=== PATIENT | male | born 1975 | race African-American/Black ===

== ENCOUNTER 2017-05-30 13:55 | Emergency (ER) | payer SELFPAY ==
[~2017-05-30] VITALS: Ht 170.2 cm; Wt 97.7 kg
[~2017-05-30 13:55] MED LIST: AMOXICILLIN500 MG OR; CLARITIN10 M1 OR; CLONIDINE0.1 MG PO; EQ IBUPROFEN200 MG OR; ERY-TAB333 MG OR; IBUPROFEN200 M1 OR; INDOCIN25 MG PO; INDOCIN50 MG/CAP PO; METFORMIN500 MG PO; NORCO1 TA1 PO; NORVASC PO; NOVOLOG MIX100 U/ML SC; PERCOCET 5/325M1 TAB PO; PROBENECID/COLC1 TAB PO; ULTRAM50 M1 OR
[2017-05-30] MEDS ORDERED: LISINOPRIL/HYDR1 TA1 PO (14:28)
[2017-05-30 15:39] LABS: HEMATOCRIT 41.6 % (39.0-50.0); HEMOGLOBIN 13.4 g/dl (14.0-18.0); IMMATURE GRANULOCYTES 0.2 % (0.0-1.0); MEAN CELL VOLUME 72.3 fL CALC (80.0-100.0); MEAN CORPUSCULAR HGB 23.3 pG CALC (26.0-32.0); MEAN CORPUSCULAR HGB CONC 32.2 g/L CALC (32.0-36.0); NEUT# 5.83 thou/uL (1.82-7.42); RED BLOOD COUNT 5.75 mill/uL (4.70-6.10); RED CELL DISTRI WIDTH 14.6 % (11.5-15.5)
[2017-05-30 15:56] LABS: ALBUMIN 4.8 g/dL (3.2-5.0); ALKALINE PHOSPHATASE 93 u/l (38-126); ANION GAP 19 (6-22 (CALC)); BILIRUBIN, TOTAL 0.9 mg/dL (0.0-1.4); BUN 18 mg/dL (9-20); BUN/CREATININE RATIO 14 (12-20 (CALC)); CALCIUM 10.4 mg/dL (8.4-10.2); CARBON DIOXIDE 26 mmol/l (22-30); CHLORIDE 98 mmol/l (95-108); CREATININE 1.3 mg/dL (0.7-1.3); GFR > 60 ML/MIN (>=60 (CALC)); GFR FOR AFR.AMER. > 60 ML/MIN (>=60 (CALC)); GLUCOSE 250 mg/dL (75-110); POTASSIUM 4.2 mmol/l (3.5-5.1); SGOT/AST 28 u/l (17-59); SGPT/ALT 36 u/l (21-72); SODIUM 138 mmol/l (137-146); TOTAL PROTEIN 8.7 g/dL (6.3-8.2)
[2017-05-30] MEDS ORDERED: FIORICET PO (16:47)
[2017-05-30 17:47] VITALS: BP 148/81
== END 2017-05-30 17:47 | disposition home or self-care (01) | DRG 103 ==
LOC: ED 13:55
PROVIDERS: Emergency Medicine
DX: G43.909 Migraine, unspecified, not intractable, without status migrainosus (principal); I10 Essential (primary) hypertension; E11.9 Type 2 diabetes mellitus without complications; M10.9 Gout, unspecified

== ENCOUNTER 2017-08-29 22:28 | Emergency (ER) | payer SELFPAY ==
[~2017-08-29] VITALS: Ht 170.2 cm; Wt 102.2 kg
[~2017-08-29 22:28] MED LIST changes: +FIORICET PO; +LISINOPRIL/HYDR1 TA1 PO
[2017-08-29] MEDS ORDERED: COLCHICINE0.6 M2 PO (23:07)
[2017-08-29] MEDS ORDERED: INDOCIN25 MG PO (23:07)
[2017-08-29 23:37] VITALS: BP 163/86
== END 2017-08-29 23:35 | disposition home or self-care (01) | DRG 554 ==
LOC: ED 22:28
DX: M10.9 Gout, unspecified (principal); M79.671 Pain in right foot

== ENCOUNTER 2017-09-13 21:21 | Emergency (ER) | payer SELFPAY ==
[~2017-09-13] VITALS: Ht 170.2 cm; Wt 99.6 kg
[~2017-09-13 21:21] MED LIST changes: +COLCHICINE0.6 M2 PO
[2017-09-13 22:07] LABS: HEMOGLOBIN 11.9 g/dl (14.0-18.0); IMMATURE GRANULOCYTES 0.8 % (0.0-1.0); MEAN CELL VOLUME 73.9 fL CALC (80.0-100.0); MEAN CORPUSCULAR HGB 23.8 pG CALC (26.0-32.0); MEAN CORPUSCULAR HGB CONC 32.2 g/L CALC (32.0-36.0); NEUT# 5.93 thou/uL (1.82-7.42); RED BLOOD COUNT 5.01 mill/uL (4.70-6.10); RED CELL DISTRI WIDTH 14.6 % (11.5-15.5)
[2017-09-13 22:14] LABS: ALBUMIN 4.6 g/dL (3.2-5.0); ALKALINE PHOSPHATASE 99 u/l (38-126); ANION GAP 20 (6-22 (CALC)); BILIRUBIN, TOTAL 0.5 mg/dL (0.0-1.4); BUN 13 mg/dL (9-20); BUN/CREATININE RATIO 11 (12-20 (CALC)); CALCIUM 9.5 mg/dL (8.4-10.2); CARBON DIOXIDE 23 mmol/l (22-30); CHLORIDE 100 mmol/l (95-108); CREATININE 1.3 mg/dL (0.7-1.3); GFR > 60 ML/MIN (>=60 (CALC)); GFR FOR AFR.AMER. > 60 ML/MIN (>=60 (CALC)); GLUCOSE 270 mg/dL (75-110); POTASSIUM 4.2 mmol/l (3.5-5.1); SGOT/AST 38 u/l (17-59); SGPT/ALT 35 u/l (21-72); SODIUM 139 mmol/l (137-146); TOTAL PROTEIN 8.1 g/dL (6.3-8.2)
[2017-09-13 22:18] LABS: INFLUENZA A NONE DETECTED (NONE DETECT); INFLUENZA B NONE DETECTED (NONE DETECT)
[2017-09-13] MEDS ORDERED: ROBITUSSIN AC10 ML PO (22:27)
[2017-09-13] MEDS ORDERED: AMOXICILLIN500 MG PO (22:27)
[2017-09-13 22:51] VITALS: BP 141/80
== END 2017-09-13 22:50 | disposition home or self-care (01) | DRG 153 ==
LOC: ED 21:21
PROVIDERS: Emergency Medicine
DX: J02.0 Streptococcal pharyngitis (principal); E11.9 Type 2 diabetes mellitus without complications; I10 Essential (primary) hypertension; M10.9 Gout, unspecified

== ENCOUNTER 2017-10-09 03:14 | Emergency (ER) | payer SELFPAY ==
[~2017-10-09] VITALS: Ht 170.2 cm; Wt 104.2 kg
[~2017-10-09 03:14] MED LIST changes: +AMOXICILLIN500 MG PO; +ROBITUSSIN AC10 ML PO
[2017-10-09 04:16] LABS: HEMATOCRIT 35.8 % (39.0-50.0); HEMOGLOBIN 11.5 g/dl (14.0-18.0); IMMATURE GRANULOCYTES 0.3 % (0.0-1.0); MEAN CELL VOLUME 74.9 fL CALC (80.0-100.0); MEAN CORPUSCULAR HGB 24.1 pG CALC (26.0-32.0); MEAN CORPUSCULAR HGB CONC 32.1 g/L CALC (32.0-36.0); NEUT# 6.2 thou/uL (1.82-7.42); RED BLOOD COUNT 4.78 mill/uL (4.70-6.10); RED CELL DISTRI WIDTH 13.9 % (11.5-15.5); URINE BILIRUBIN - DIPSTICK NEGATIVE (NEGATIVE); URINE BLOOD DIPSTICK TRACE-INTACT (NEGATIVE); URINE COLOR YELLOW; URINE GLUCOSE - DIPSTICK NEGATIVE (NEGATIVE); URINE KETONE NEGATIVE (NEGATIVE); URINE LEUK ESTERASE NEGATIVE (NEGATIVE); URINE NITRITE - DIPSTICK NEGATIVE (Negative); URINE PH 5.5 (4.5-8.0); URINE PROTEIN - DIPSTICK 100 mg/dL (NEG-TRACE); URINE SPECIFIC GRAVITY 1.025; URINE UROBILINOGEN - DIPSTICK 0.2 E.U./dL (0.2)
[2017-10-09 04:17] LABS: URINE CLARITY CLEAR
[2017-10-09 04:24] LABS: INFLUENZA A POSITIVE (NONE DETECT); INFLUENZA B NONE DETECTED (NONE DETECT)
[2017-10-09 04:26] LABS: URINE BACTERIA FEW hpf; URINE SQUAMOUS EPITHELIAL CELL FEW EPI/hpf (0-FEW)
[2017-10-09] MEDS ORDERED: AMOXICILLIN500 MG PO (04:28)
[2017-10-09] MEDS ORDERED: ROBITUSSIN AC10 ML PO (04:28)
[2017-10-09] MEDS ORDERED: TAM75CAP PO (04:28)
[2017-10-09 04:30] LABS: ALBUMIN 4.5 g/dL (3.2-5.0); ALKALINE PHOSPHATASE 88 u/l (38-126); ANION GAP 17 (6-22 (CALC)); BILIRUBIN, TOTAL 0.5 mg/dL (0.0-1.4); BUN 9 mg/dL (9-20); BUN/CREATININE RATIO 8 (12-20 (CALC)); CALCIUM 10.1 mg/dL (8.4-10.2); CARBON DIOXIDE 24 mmol/l (22-30); CHLORIDE 106 mmol/l (95-108); CREATININE 1.2 mg/dL (0.7-1.3); GFR > 60 ML/MIN (>=60 (CALC)); GFR FOR AFR.AMER. > 60 ML/MIN (>=60 (CALC)); GLUCOSE 179 mg/dL (75-110); POTASSIUM 4.1 mmol/l (3.5-5.1); SGOT/AST 62 u/l (17-59); SGPT/ALT 45 u/l (21-72); SODIUM 143 mmol/l (137-146); TOTAL PROTEIN 7.8 g/dL (6.3-8.2)
[2017-10-09] MEDS ORDERED: LISINOPRIL/HYDR1 TA1 PO (04:57)
[2017-10-09 05:06] VITALS: BP 169/83
== END 2017-10-09 05:06 | disposition home or self-care (01) | DRG 153 ==
LOC: ED 03:14
PROVIDERS: Emergency Medicine
DX: J11.1 Influenza due to unidentified influenza virus with other respiratory manifestations (principal); J02.0 Streptococcal pharyngitis; N39.0 Urinary tract infection, site not specified; R50.9 Fever, unspecified

== ENCOUNTER 2017-10-09 14:16 | Inpatient (IN) | payer SELFPAY ==
[~2017-10-09] VITALS: Ht 170.2 cm; Wt 101.2 kg
[~2017-10-09 14:16] MED LIST changes: +TAM75CAP PO
--- NOTE | 2017-10-09 14:16 | NUR ---
TO ROOM 11 VIA STRETCHER BY EMS. WALKED TO BED. STATES WAS HERE LAST NIGHT, DX WITH FLU AND STREP BUT HS NOT STARTED MEDICATION
[2017-10-09 15:20] LABS: ALBUMIN 4.4 g/dL (3.2-5.0); ALKALINE PHOSPHATASE 82 u/l (38-126); ANION GAP 16 (6-22 (CALC)); BILIRUBIN, TOTAL 0.4 mg/dL (0.0-1.4); BUN 11 mg/dL (9-20); BUN/CREATININE RATIO 8 (12-20 (CALC)); CALCIUM 9.8 mg/dL (8.4-10.2); CARBON DIOXIDE 24 mmol/l (22-30); CHLORIDE 105 mmol/l (95-108); CREATININE 1.4 mg/dL (0.7-1.3); GFR 56 ML/MIN (>=60 (CALC)); GFR FOR AFR.AMER. > 60 ML/MIN (>=60 (CALC)); GLUCOSE 165 mg/dL (75-110); POTASSIUM 3.9 mmol/l (3.5-5.1); SGOT/AST 87 u/l (17-59); SGPT/ALT 47 u/l (21-72); SODIUM 142 mmol/l (137-146); TOTAL PROTEIN 8.1 g/dL (6.3-8.2)
[2017-10-09 15:24] LABS: HEMATOCRIT 34.8 % (39.0-50.0); HEMOGLOBIN 11.3 g/dl (14.0-18.0); IMMATURE GRANULOCYTES 0.5 % (0.0-1.0); MEAN CORPUSCULAR HGB CONC 32.5 g/L CALC (32.0-36.0); NEUT# 6.92 thou/uL (1.82-7.42); RED BLOOD COUNT 4.7 mill/uL (4.70-6.10)
--- NOTE | 2017-10-09 15:53 | NUR ---
BEDRESTING. C/O BODY ACHES. NO COUGH NOTED
--- NOTE | 2017-10-09 16:30 | NUR ---
VOIDED 300ML STRAW COLORED URINE
--- NOTE | 2017-10-09 16:31 | NUR ---
SBAR PRINTED TO FLOOR
--- NOTE | 2017-10-09 16:51 | NUR ---
TYLENOL GIVEN FOR FEVER. AWAITING BED FOR ADMISSION
--- NOTE | 2017-10-09 16:58 | NUR ---
CALLED TO GIVE REPORT. NURSE TO RETURN CALL WHEN READY TO TAKE REPORT
--- NOTE | 2017-10-09 16:59 | NUR ---
SBAR REPRINTED TO FLOOR
[2017-10-09 17:05] LABS: BARBITURATES NEGATIVE (NEGATIVE); COCAINE NEGATIVE (NEGATIVE); METHADONE NEGATIVE (NEGATIVE); OXCYCODONE NEGATIVE (NEGATIVE); TETRAHYDROCANNABIONOL NEGATIVE (NEGATIVE); TRICYLIC ANTIDEPRESSANTS NEGATIVE (NEGATIVE)
--- NOTE | 2017-10-09 17:05 | NUR ---
ISABELLE CALLED BACK-REPORT GIVEN
--- NOTE | 2017-10-09 17:40 | NUR ---
TO MS VIA STRETCHER. PT REPORTS HE FEELS BETTER. VOIDED 25ML OF STRAW URINE AT THIS TIME
[2017-10-09 17:46] VITALS: BP 126/65
--- NOTE | 2017-10-09 17:47 | NUR ---
REPORT RECEIVED FROM VON IN ED, PT ARRIVED ON UNIT VIA W/C @ 7141, ALERT AMD ORIENTED X 3, SETTLED IN AND ORIENTED TO ROOM, TELE MOITOR IN PLACE. TEMP AT THIS TIME = 102.3. C/O CHEST PAIN BUT ONLY OCCURS WITH COUGHING. CALL WHITE INREACH, WILL CONTINUE TO MONITOR.
[2017-10-09 18:45] VITALS: BP 139/79
[2017-10-09 18:49] LABS: URINE BILIRUBIN - DIPSTICK NEGATIVE (NEGATIVE); URINE BLOOD DIPSTICK TRACE-INTACT (NEGATIVE); URINE COLOR YELLOW; URINE GLUCOSE - DIPSTICK NEGATIVE (NEGATIVE); URINE KETONE NEGATIVE (NEGATIVE); URINE LEUK ESTERASE NEGATIVE (Negative); URINE NITRITE - DIPSTICK NEGATIVE (Negative); URINE PROTEIN - DIPSTICK 100 mg/dL (NEG-TRACE); URINE SPECIFIC GRAVITY 1.025; URINE UROBILINOGEN - DIPSTICK 0.2 E.U./dL (0.2)
[2017-10-09 18:53] LABS: URINE CLARITY CLEAR
[2017-10-09 19:00] LABS: URINE RBC 0-2 RBC/hpf (0-5); URINE WBC 0-2 WBC/hpf (0-5)
--- NOTE | 2017-10-09 19:47 | NUR ---
PT IN BED A/O X3, RESPIRATIONS EVEN AND UNLABORED ON RA, TEMP 101.2 AT THIS TIME. PO FLUIDS IN REACH. NS INFUSING TO RAC AT 100CC/HR. ENCOURAGED TO USE CALL LIGHT FOR ASSISTANCE. WILL CONTINUE TO MONITOR.
--- NOTE | 2017-10-09 22:03 | NUR ---
MEDICATED WITH TYLENOL 650MG PO FOR TEMP 101.4.
[2017-10-10] VITALS (7 sets, daily range): BP systolic 153–178; BP diastolic 77–93
--- NOTE | 2017-10-10 02:00 | NUR ---
RESTING ON RIGHT SIDE WITH EYES CLOSED, RESPIRATIONS EVEN AND UNLABORED.
--- NOTE | 2017-10-10 04:27 | NUR ---
TEMP 102.8 TYLENOL 650MG PO PROVIDED AT THIS TIME, SHOWER OFFERED AND PT STATES "NOT AT THIS TIME"
--- NOTE | 2017-10-10 05:15 | NUR ---
OOB TO SHOWER AT THIS TIME.
[2017-10-10 06:43] LABS: HEMATOCRIT 32.6 % (39.0-50.0); HEMOGLOBIN 10.4 g/dl (14.0-18.0); MEAN CELL VOLUME 74.4 fL CALC (80.0-100.0); MEAN CORPUSCULAR HGB 23.7 pG CALC (26.0-32.0); MEAN CORPUSCULAR HGB CONC 31.9 g/L CALC (32.0-36.0); RED BLOOD COUNT 4.38 mill/uL (4.70-6.10); RED CELL DISTRI WIDTH 14.1 % (11.5-15.5)
[2017-10-10 07:09] LABS: ANION GAP 15 (6-22 (CALC)); BUN 15 mg/dL (9-20); BUN/CREATININE RATIO 11 (12-20 (CALC)); CALCIUM 9.1 mg/dL (8.4-10.2); CARBON DIOXIDE 26 mmol/l (22-30); CHLORIDE 105 mmol/l (95-108); CREATININE 1.4 mg/dL (0.7-1.3); GFR 56 ML/MIN (>=60 (CALC)); GFR FOR AFR.AMER. > 60 ML/MIN (>=60 (CALC)); GLUCOSE 145 mg/dL (75-110); MAGNESIUM 1.2 mg/dL (1.6-2.3); POTASSIUM 3.9 mmol/l (3.5-5.1); SODIUM 141 mmol/l (137-146)
--- NOTE | 2017-10-10 08:11 | NUR ---
PT.IN BED W/LIGHTS LOW. PT.MEDICATED ORDERS PROVIDE, LUNG SOUNDS EXP WHEEZES, OTHERWISE NEG ASSESSMENT. LOCX3, REPORTED BM YESTERDAY. DENIES ANY PAIN/N/V AT THIS TIME. CALL LIGHT IS AT SIDE AND PT.HAS BEEN INSTRUCTED TO CALL IF ANY NEEDS ARISE.
[2017-10-10 08:56] LABS: CHOLESTEROL HDL RATIO 6.1 (<4.4 (CALC))
--- NOTE | 2017-10-10 10:15 | NUR ---
PT.TEMP 99.5, PT.SLEEPING AT THIS TIME, BUT RESPONDED TO MY SPEECH
--- NOTE | 2017-10-10 18:02 | NUR ---
PT.MEDICATED WITH APRESALINE FOR BLOOD PRESSURE OF 182/95, HR72 URINAL EMPTIED OF 300CC OF CLEAR YELLOW URINE. PT.DENIES ANY OTHER NEEDS AT THIS TIME, CALL LIGHT W/IN REACH
--- NOTE | 2017-10-10 19:30 | NUR ---
PATIENT RESTING IN BED WITH VISITORS AT BEDSIDE. PATIENT IS AWAKE ALERT AND ORIENTEDX3. PATIENT WITH NO COMPLAINTS AT THIS TIME. STATES THAT HE IS FEELING MUCH BETTER. IV SITE TO LEFT WRIST WITH IVF ORDERED. VOIDING CLEAR YELLOW URINE IN URINAL. SAFETY PRECAUTIONS REINFORCED. XANDER LIGHT IN REACH. WILL CONT TO MONITOR.
--- NOTE | 2017-10-10 21:15 | NUR ---
PATIENT WITH ELEVATED BP-MEDICATED WITH CLONIDINE 0.2MG PO ORDERED FOR HTN. MAG SULFATE INFUSING ORDERED. PATIENT STATES THAT HE DID HAVE BM BUT ALREADY FLUSHED. INSTRUCTED ON NEED FOR STOOL SPEC WHEN ABLE. UP IN THE ROOM WITH STEADY GAIT. CALL LIGHT IN REACH. WILL CONT TO MONITOR.
--- NOTE | 2017-10-11 01:08 | NUR ---
PATIENT RESTING IN BED WITH VISITORS AT BEDSIDE. PATIENT IS AWAKE ALERT AND ORIENTEDX3. PATIENT WITH NO COMPLAINTS AT THIS TIME. STATES THAT HE IS FEELING MUCH BETTER. PATIENT WITH IV SITE TO LEFT WRIST WITH IVF ORDERED. VOIDING QS CLEAR YELLOW URINE IN URINAL. SAFETY PRECAUTIONS REINFORCED. CALL LIGHT IN REACH. WILL CONT TO MONITOR.
--- NOTE | 2017-10-11 01:26 | NUR ---
APPEARS SLEEPING AT THIS TIMEWITH EYES CLOSED. CALL LIGHT IN REACH. WILL CONT TO MONITOR.
--- NOTE | 2017-10-11 04:00 | NUR ---
PATIENT APPEARS SLEEPING AT THIS TIME IN NO ACUTE DISTRESS. CALL LIGHT IN REACH. WILL CONT TO MONITOR.
[2017-10-11 05:05] VITALS: BP 167/98
[2017-10-11 05:50] LABS: BUN 18 mg/dL (9-20); BUN/CREATININE RATIO 15 (12-20 (CALC)); CALCIUM 9.3 mg/dL (8.4-10.2); CARBON DIOXIDE 24 mmol/l (22-30); CHLORIDE 101 mmol/l (95-108); CREATININE 1.2 mg/dL (0.7-1.3); GFR > 60 ML/MIN (>=60 (CALC)); GFR FOR AFR.AMER. > 60 ML/MIN (>=60 (CALC)); GLUCOSE 371 mg/dL (75-110); MAGNESIUM 2.9 mg/dL (1.6-2.3); SODIUM 136 mmol/l (137-146)
[2017-10-11 05:52] LABS: HEMATOCRIT 38.1 % (39.0-50.0); HEMOGLOBIN 12.2 g/dl (14.0-18.0); IMMATURE GRANULOCYTES 0.5 % (0.0-1.0); MEAN CELL VOLUME 74.6 fL CALC (80.0-100.0); MEAN CORPUSCULAR HGB 23.9 pG CALC (26.0-32.0); NEUT# 5.66 thou/uL (1.82-7.42); RED BLOOD COUNT 5.11 mill/uL (4.70-6.10); RED CELL DISTRI WIDTH 13.8 % (11.5-15.5)
[2017-10-11 05:54] LABS: ANION GAP 17 (6-22 (CALC)); POTASSIUM 5.7 mmol/l (3.5-5.1)
--- NOTE | 2017-10-11 07:29 | NUR ---
REPORT RECEIVED FROM NIGHT NURSE, PT.PROPPED UP IN BED W/LIGHTS LOW AND TV ON. HE IS AWAKE AND REPORTS FEELING BETTER THIS MORNING. VOICED CONCERN THAT HIS SUGAR HAS BEEN RUNNING HIGH AND IS WONDERING IF ANY OF HIS MEDICAITONS COULD BE CAUSING THAT. REPORTS FEELING BETTER OTHERWISE. DENIES ANY OTHER NEEDS AT THIS TIME, CALL LIGHT IN HAND
[2017-10-11 07:50] VITALS: BP 143/85
--- NOTE | 2017-10-11 08:45 | NUR ---
PT.UPRIGHT IN BED, FINISHED EATING BREAKFAST. MEDICATED PT. ORDERS PROVIDE. IV FLUIDS ARE RUNNING, PT.REPORTS FEELING BETTER. LUNG SOUNDS HAVE MILD WHEEZING MID AND LOWER LOBES, UPPER CLEAR.
[2017-10-11] MEDS ORDERED: JANUVIA50 MG PO (11:35)
[2017-10-11] MEDS ORDERED: PROAIR HFA108 MCG/AC IN (11:36)
[2017-10-11] MEDS ORDERED: PREDNISONE20 MG PO (11:37)
[2017-10-11 13:10] LABS: ANION GAP 19 (6-22 (CALC)); BUN 21 mg/dL (9-20); BUN/CREATININE RATIO 17 (12-20 (CALC)); CALCIUM 10.2 mg/dL (8.4-10.2); CARBON DIOXIDE 22 mmol/l (22-30); CHLORIDE 101 mmol/l (95-108); CREATININE 1.2 mg/dL (0.7-1.3); GFR > 60 ML/MIN (>=60 (CALC)); GFR FOR AFR.AMER. > 60 ML/MIN (>=60 (CALC)); GLUCOSE 338 mg/dL (75-110); POTASSIUM 4.7 mmol/l (3.5-5.1); SODIUM 137 mmol/l (137-146)
--- NOTE | 2017-10-11 14:30 | NUR ---
PT.DISCHARGED IN GOOD CONDITION SELF AMBULATORY. IV REMOVED INTACT/SITE APPEARS HEALTHY, EROSION CONTROL SPECIALIST REMOVED.
== END 2017-10-11 14:25 | disposition home or self-care (01) | DRG 194 ==
LOC: ED 14:16 → ED-I 16:08 → ED 16:26 → MS2 16:27
PROVIDERS: Emergency Medicine; Internal Medicine; Nurse Practitioner Family; ADMIT Internal Medicine; ATTEND Internal Medicine
DX: J10.1 Influenza due to other identified influenza virus with other respiratory manifestations (principal); N17.9 Acute kidney failure, unspecified; I16.0 Hypertensive urgency; I12.9 Hypertensive chronic kidney disease with stage 1 through stage 4 chronic kidney disease, or unspecified chronic kidney disease; E11.22 Type 2 diabetes mellitus with diabetic chronic kidney disease; E11.65 Type 2 diabetes mellitus with hyperglycemia; N18.3 Chronic kidney disease, stage 3 (moderate); E83.42 Hypomagnesemia; M19.90 Unspecified osteoarthritis, unspecified site; D64.9 Anemia, unspecified; R01.1 Cardiac murmur, unspecified; Z79.84 Long term (current) use of oral hypoglycemic drugs; Z82.49 Family history of ischemic heart disease and other diseases of the circulatory system
CPT/HCPCS: J3475

== ENCOUNTER 2018-05-13 22:20 | Emergency (ER) | payer SELFPAY ==
[~2018-05-13] VITALS: Ht 170.2 cm; Wt 100.0 kg
[~2018-05-13 22:20] MED LIST changes: +JANUVIA50 MG PO; +PREDNISONE20 MG PO; +PROAIR HFA108 MCG/AC IN
[2018-05-13] MEDS ORDERED: ZESTRIL40 MG PO (23:07)
[2018-05-13] MEDS ORDERED: AMLODIPINE5 MG PO (23:07)
[2018-05-13] MEDS ORDERED: NOVOLIN 70/30 SC ×2 (23:08→23:52)
[2018-05-13] MEDS ORDERED: ZYLOPRIM100 MG PO (23:09)
[2018-05-13] MEDS ORDERED: INDOCIN25 MG PO (23:52)
[2018-05-13 23:56] VITALS: BP 153/91
== END 2018-05-14 00:05 | disposition home or self-care (01) | DRG 554 ==
LOC: ED 22:20
DX: M10.9 Gout, unspecified (principal); M79.671 Pain in right foot; Z76.0 Encounter for issue of repeat prescription

== ENCOUNTER 2018-06-03 18:50 | Emergency (ER) | payer SELFPAY ==
[~2018-06-03] VITALS: Ht 170.2 cm; Wt 101.4 kg
[~2018-06-03 18:50] MED LIST changes: +AMLODIPINE5 MG PO; +NOVOLIN 70/30 SC; +ZESTRIL40 MG PO; +ZYLOPRIM100 MG PO
[2018-06-03 19:49] LABS: HEMATOCRIT 36.9 % (39.0-50.0); HEMOGLOBIN 11.8 g/dl (14.0-18.0); IMMATURE GRANULOCYTES 0.2 % (0.0-5.0); MEAN CELL VOLUME 73.1 fL CALC (80.0-100.0); MEAN CORPUSCULAR HGB 23.4 pG CALC (26.0-32.0); NEUT# 5.46 thou/uL (1.82-7.42); RED BLOOD COUNT 5.05 mill/uL (4.70-6.10); RED CELL DISTRI WIDTH 14.5 % (11.5-15.5)
[2018-06-03 19:50] LABS: URINE BILIRUBIN - DIPSTICK NEGATIVE (NEGATIVE); URINE BLOOD DIPSTICK TRACE-LYSED (NEGATIVE); URINE COLOR YELLOW; URINE GLUCOSE - DIPSTICK NEGATIVE (NEGATIVE); URINE KETONE NEGATIVE (NEGATIVE); URINE LEUK ESTERASE NEGATIVE (NEGATIVE); URINE NITRITE - DIPSTICK NEGATIVE (Negative); URINE PROTEIN - DIPSTICK 100 mg/dL (NEG-TRACE); URINE SPECIFIC GRAVITY >=1.030; URINE UROBILINOGEN - DIPSTICK 0.2 E.U./dL (0.2)
[2018-06-03 19:51] LABS: URINE CLARITY CLEAR
[2018-06-03 19:57] LABS: URINE RBC 0-2 RBC/hpf (0-5); URINE WBC 0-2 WBC/hpf (0-5)
[2018-06-03 20:00] LABS: ALBUMIN 4.5 g/dL (3.2-5.0); ALKALINE PHOSPHATASE 113 u/l (38-126); BILIRUBIN, TOTAL 0.5 mg/dL (0.0-1.4); BUN 7 mg/dL (9-20); BUN/CREATININE RATIO 7 (12-20 (CALC)); CARBON DIOXIDE 27 mmol/l (22-30); CHLORIDE 104 mmol/l (95-108); CREATININE 1.1 mg/dL (0.7-1.3); GFR > 60 ML/MIN (>=60 (CALC)); GFR FOR AFR.AMER. > 60 ML/MIN (>=60 (CALC)); SGOT/AST 28 u/l (17-59); SGPT/ALT 29 u/l (21-72); SODIUM 142 mmol/l (137-146); TOTAL PROTEIN 8.7 g/dL (6.3-8.2)
[2018-06-03 20:07] LABS: ANION GAP 15 (6-22 (CALC)); POTASSIUM 3.7 mmol/l (3.5-5.1)
[2018-06-03 20:08] LABS: MYOGLOBIN 34 ng/mL (0 - 121)
[2018-06-03] MEDS ORDERED: FIORICET PO (20:31)
[2018-06-03 21:02] VITALS: BP 169/94
== END 2018-06-03 20:53 | disposition home or self-care (01) | DRG 103 ==
LOC: ED 18:50
PROVIDERS: Emergency Medicine
DX: G43.909 Migraine, unspecified, not intractable, without status migrainosus (principal); I10 Essential (primary) hypertension; E11.9 Type 2 diabetes mellitus without complications; M10.9 Gout, unspecified

== ENCOUNTER 2018-11-27 05:37 | Emergency (ER) | payer SELFPAY ==
[~2018-11-27] VITALS: Ht 170.2 cm; Wt 99.0 kg
[2018-11-27] MEDS ORDERED: INDOCIN25 MG PO (05:57)
[2018-11-27 09:21] VITALS: BP 172/89
== END 2018-11-27 09:21 | disposition home or self-care (01) | DRG 554 ==
LOC: ED 05:37
DX: M10.071 Idiopathic gout, right ankle and foot (principal); I10 Essential (primary) hypertension; M19.90 Unspecified osteoarthritis, unspecified site; E11.9 Type 2 diabetes mellitus without complications

== ENCOUNTER 2018-12-16 17:56 | Emergency (ER) | payer SELFPAY ==
[~2018-12-16] VITALS: Ht 170.2 cm; Wt 100.0 kg
[2018-12-16 18:54] LABS: IMMATURE GRANULOCYTES 0.2 % (0.0-5.0); MEAN CELL VOLUME 71.4 fL CALC (80.0-100.0); MEAN CORPUSCULAR HGB 22.1 pG CALC (26.0-32.0); NEUT# 4.94 thou/uL (1.82-7.42); RED BLOOD COUNT 6.37 mill/uL (4.70-6.10); RED CELL DISTRI WIDTH 15.9 % (11.5-15.5)
[2018-12-16 19:00] LABS: HEMATOCRIT 45.5 % (39.0-50.0); HEMOGLOBIN 14.1 g/dl (14.0-18.0)
[2018-12-16 19:01] LABS: ALBUMIN 4.8 g/dL (3.2-5.0); ALKALINE PHOSPHATASE 108 u/l (38-126); ANION GAP 15 (6-22 (CALC)); BILIRUBIN, TOTAL 0.5 mg/dL (0.0-1.4); BUN 10 mg/dL (9-20); BUN/CREATININE RATIO 9 (12-20 (CALC)); CARBON DIOXIDE 28 mmol/l (22-30); CHLORIDE 101 mmol/l (95-108); CREATININE 1.2 mg/dL (0.7-1.3); GFR > 60 ML/MIN (>=60 (CALC)); GFR FOR AFR.AMER. > 60 ML/MIN (>=60 (CALC)); POTASSIUM 3.9 mmol/l (3.5-5.1); SGOT/AST 30 u/l (17-59); SODIUM 140 mmol/l (137-146); TOTAL PROTEIN 9.2 g/dL (6.3-8.2)
[2018-12-16 19:13] LABS: MYOGLOBIN 94 ng/mL (0 - 121)
[2018-12-16 21:14] LABS: URINE BILIRUBIN - DIPSTICK NEGATIVE (NEGATIVE); URINE BLOOD DIPSTICK TRACE-INTACT (NEGATIVE); URINE COLOR YELLOW; URINE GLUCOSE - DIPSTICK NEGATIVE (NEGATIVE); URINE KETONE NEGATIVE (NEGATIVE); URINE LEUK ESTERASE NEGATIVE (NEGATIVE); URINE NITRITE - DIPSTICK NEGATIVE (Negative); URINE PROTEIN - DIPSTICK >=300 mg/dL (NEG-TRACE); URINE SPECIFIC GRAVITY >=1.030; URINE UROBILINOGEN - DIPSTICK 0.2 E.U./dL (0.2)
[2018-12-16 21:18] LABS: BARBITURATES NEGATIVE (NEGATIVE); COCAINE NEGATIVE (NEGATIVE); METHADONE NEGATIVE (NEGATIVE); OXCYCODONE NEGATIVE (NEGATIVE); TETRAHYDROCANNABIONOL NEGATIVE (NEGATIVE); TRICYLIC ANTIDEPRESSANTS NEGATIVE (NEGATIVE)
[2018-12-16 21:21] LABS: URINE RBC 0-2 RBC/hpf (0-5); URINE WBC 0-2 WBC/hpf (0-5)
[2018-12-16] MEDS ORDERED: FIORICET PO (21:38)
[2018-12-16] MEDS ORDERED: AMLODIPINE5 MG PO (21:38)
[2018-12-16] MEDS ORDERED: LISINOPRIL40 MG PO (21:38)
[2018-12-16 22:03] VITALS: BP 159/84
== END 2018-12-16 22:02 | disposition home or self-care (01) | DRG 305 ==
LOC: ED 17:56
PROVIDERS: Family Medicine
DX: I10 Essential (primary) hypertension (principal); G43.909 Migraine, unspecified, not intractable, without status migrainosus; E11.9 Type 2 diabetes mellitus without complications

== ENCOUNTER 2018-12-20 21:32 | Emergency (ER) | payer SELFPAY ==
[~2018-12-20] VITALS: Ht 170.2 cm; Wt 100.0 kg
[~2018-12-20 21:32] MED LIST changes: +LISINOPRIL40 MG PO
[2018-12-20 22:44] LABS: ANION GAP 12 (6-22 (CALC)); BUN 12 mg/dL (9-20); BUN/CREATININE RATIO 11 (12-20 (CALC)); CARBON DIOXIDE 28 mmol/l (22-30); CHLORIDE 104 mmol/l (95-108); CREATININE 1.1 mg/dL (0.7-1.3); GFR > 60 ML/MIN (>=60 (CALC)); GFR FOR AFR.AMER. > 60 ML/MIN (>=60 (CALC)); POTASSIUM 3.9 mmol/l (3.5-5.1); SODIUM 140 mmol/l (137-146)
[2018-12-20 23:08] LABS: TSH, 3RD GENERATION 2.75 uIU/mL (0.47 - 4.68)
[2018-12-20] MEDS ORDERED: METO50TA52 PO (23:58)
[2018-12-20] MEDS ORDERED: AMLODIPINE10 MG PO (23:58)
[2018-12-21 00:14] VITALS: BP 142/74
== END 2018-12-21 00:14 | disposition home or self-care (01) | DRG 305 ==
LOC: ED 21:32
PROVIDERS: Family Medicine
DX: I10 Essential (primary) hypertension (principal); E11.9 Type 2 diabetes mellitus without complications

== ENCOUNTER 2019-02-27 17:18 | Emergency (ER) | payer SELFPAY ==
[~2019-02-27] VITALS: Ht 170.2 cm; Wt 98.0 kg
[~2019-02-27 17:18] MED LIST changes: +AMLODIPINE10 MG PO; +METO50TA52 PO
[2019-02-27 18:07] LABS: HEMATOCRIT 43.8 % (39.0-50.0); HEMOGLOBIN 13.7 g/dl (14.0-18.0); IMMATURE GRANULOCYTES 0.3 % (0.0-5.0); MEAN CELL VOLUME 72.3 fL CALC (80.0-100.0); MEAN CORPUSCULAR HGB 22.6 pG CALC (26.0-32.0); MEAN CORPUSCULAR HGB CONC 31.3 g/L CALC (32.0-36.0); NEUT# 4.92 thou/uL (1.82-7.42); RED BLOOD COUNT 6.06 mill/uL (4.70-6.10)
[2019-02-27 18:09] LABS: URINE BILIRUBIN - DIPSTICK NEGATIVE (NEGATIVE); URINE BLOOD DIPSTICK SMALL (NEGATIVE); URINE COLOR YELLOW; URINE GLUCOSE - DIPSTICK NEGATIVE (NEGATIVE); URINE KETONE TRACE mg/dL (NEGATIVE); URINE LEUK ESTERASE NEGATIVE (NEGATIVE); URINE NITRITE - DIPSTICK NEGATIVE (Negative); URINE PROTEIN - DIPSTICK >=300 mg/dL (NEG-TRACE); URINE SPECIFIC GRAVITY >=1.030; URINE UROBILINOGEN - DIPSTICK 0.2 E.U./dL (0.2)
[2019-02-27 18:12] LABS: BARBITURATES NEGATIVE (NEGATIVE); COCAINE NEGATIVE (NEGATIVE); METHADONE NEGATIVE (NEGATIVE); OXCYCODONE NEGATIVE (NEGATIVE); TETRAHYDROCANNABIONOL NEGATIVE (NEGATIVE); TRICYLIC ANTIDEPRESSANTS NEGATIVE (NEGATIVE)
[2019-02-27 18:16] LABS: URINE WBC 0-2 WBC/hpf (0-5)
[2019-02-27 18:18] LABS: ALBUMIN 4.7 g/dL (3.2-5.0); ALKALINE PHOSPHATASE 103 u/l (38-126); ANION GAP 15 (6-22 (CALC)); BILIRUBIN, TOTAL 0.6 mg/dL (0.0-1.4); BUN 13 mg/dL (9-20); BUN/CREATININE RATIO 9 (12-20 (CALC)); CARBON DIOXIDE 24 mmol/l (22-30); CHLORIDE 105 mmol/l (95-108); CREATININE 1.3 mg/dL (0.7-1.3); GFR > 60 ML/MIN (>=60 (CALC)); GFR FOR AFR.AMER. > 60 ML/MIN (>=60 (CALC)); POTASSIUM 4.3 mmol/l (3.5-5.1); SGOT/AST 28 u/l (17-59); SODIUM 140 mmol/l (137-146); TOTAL PROTEIN 8.7 g/dL (6.3-8.2)
[2019-02-27 18:30] LABS: MYOGLOBIN 69 ng/mL (0 - 121)
[2019-02-27] MEDS ORDERED: AMLODIPINE10 MG PO (18:30)
[2019-02-27] MEDS ORDERED: LISINOPRIL40 MG PO (18:30)
[2019-02-27 18:42] VITALS: BP 147/77
== END 2019-02-27 19:04 | disposition home or self-care (01) | DRG 305 ==
LOC: ED 17:18
PROVIDERS: Emergency Medicine
DX: I10 Essential (primary) hypertension (principal); E11.9 Type 2 diabetes mellitus without complications; T46.5X6A Underdosing of other antihypertensive drugs, initial encounter; Z91.128 Patient's intentional underdosing of medication regimen for other reason

== ENCOUNTER 2019-03-03 22:48 | Emergency (ER) | payer SELFPAY ==
[~2019-03-03] VITALS: Ht 170.2 cm; Wt 99.0 kg
[2019-03-04] MEDS ORDERED: INDOCIN25 MG PO (00:03)
[2019-03-04] MEDS ORDERED: LORTAB 1010 MG PO (00:03)
[2019-03-04 01:10] VITALS: BP 174/98
== END 2019-03-04 01:18 | disposition home or self-care (01) | DRG 554 ==
LOC: ED 22:48
DX: M10.072 Idiopathic gout, left ankle and foot (principal); I10 Essential (primary) hypertension; E11.9 Type 2 diabetes mellitus without complications

== ENCOUNTER 2019-04-12 17:09 | Emergency (ER) | payer OTHER ==
[~2019-04-12] VITALS: Ht 170.2 cm; Wt 100.0 kg
[~2019-04-12 17:09] MED LIST changes: +LORTAB 1010 MG PO
[2019-04-12 18:00] LABS: HEMATOCRIT 42.5 % (39.0-50.0); HEMOGLOBIN 13.2 g/dl (14.0-18.0); IMMATURE GRANULOCYTES 0.3 % (0.0-5.0); MEAN CELL VOLUME 71.5 fL CALC (80.0-100.0); MEAN CORPUSCULAR HGB 22.2 pG CALC (26.0-32.0); MEAN CORPUSCULAR HGB CONC 31.1 g/L CALC (32.0-36.0); NEUT# 5.49 thou/uL (1.82-7.42); RED BLOOD COUNT 5.94 mill/uL (4.70-6.10)
[2019-04-12 18:16] LABS: ALBUMIN 4.6 g/dL (3.2-5.0); ALKALINE PHOSPHATASE 105 u/l (38-126); ANION GAP 15 (6-22 (CALC)); BILIRUBIN, TOTAL 0.5 mg/dL (0.0-1.4); BUN 13 mg/dL (9-20); BUN/CREATININE RATIO 11 (12-20 (CALC)); CARBON DIOXIDE 27 mmol/l (22-30); CHLORIDE 104 mmol/l (95-108); CREATININE 1.2 mg/dL (0.7-1.3); GFR > 60 ML/MIN (>=60 (CALC)); GFR FOR AFR.AMER. > 60 ML/MIN (>=60 (CALC)); SGOT/AST 27 u/l (17-59); SODIUM 141 mmol/l (137-146); TOTAL PROTEIN 8.6 g/dL (6.3-8.2)
[2019-04-12] MEDS ORDERED: INDOCIN25 MG PO (19:29)
[2019-04-12] MEDS ORDERED: AMLODIPINE10 MG PO (19:29)
[2019-04-12] MEDS ORDERED: LISINOPRIL40 MG PO (19:29)
[2019-04-12 19:35] VITALS: BP 173/84
== END 2019-04-12 19:45 | disposition home or self-care (01) ==
LOC: ED 17:09
PROVIDERS: Emergency Medicine
DX: M25.562 Pain in left knee (principal); E11.9 Type 2 diabetes mellitus without complications; I10 Essential (primary) hypertension; M10.9 Gout, unspecified; T39.2X Poisoning by, adverse effect of and underdosing of pyrazolone derivatives; Z91.128 Patient's intentional underdosing of medication regimen for other reason; Z79.4 Long term (current) use of insulin

== ENCOUNTER 2019-05-26 21:02 | Emergency (ER) | payer OTHER ==
[~2019-05-26] VITALS: Ht 170.2 cm; Wt 100.0 kg
[2019-05-26] MEDS ORDERED: NOVOLOG MIX SC (21:17)
[2019-05-26] MEDS ORDERED: AMOXICILLIN500 MG PO (22:16)
[2019-05-26 22:29] VITALS: BP 150/96
== END 2019-05-26 22:39 | disposition home or self-care (01) ==
LOC: ED 21:02
DX: J02.9 Acute pharyngitis, unspecified (principal); E11.9 Type 2 diabetes mellitus without complications; I10 Essential (primary) hypertension; Z79.4 Long term (current) use of insulin

== ENCOUNTER 2019-06-13 10:53 | Emergency (ER) | payer OTHER ==
[~2019-06-13] VITALS: Ht 170.2 cm; Wt 96.4 kg
[~2019-06-13 10:53] MED LIST changes: +NOVOLOG MIX SC
[2019-06-13] MEDS ORDERED: INDOCIN25 MG PO (11:14)
[2019-06-13 11:24] VITALS: BP 134/76
== END 2019-06-13 11:30 | disposition home or self-care (01) ==
LOC: ED 10:53
DX: M10.071 Idiopathic gout, right ankle and foot (principal); E11.9 Type 2 diabetes mellitus without complications; I10 Essential (primary) hypertension; Z79.4 Long term (current) use of insulin

== ENCOUNTER 2019-06-15 18:32 | Inpatient (IN) | payer OTHER ==
[~2019-06-15] VITALS: Ht 170.2 cm; Wt 94.8 kg
[2019-06-15 19:01] LABS: HEMATOCRIT 44.9 % (39.0-50.0); HEMOGLOBIN 14.6 g/dl (14.0-18.0); IMMATURE GRANULOCYTES 0.3 % (0.0-5.0); MEAN CELL VOLUME 69.7 fL CALC (80.0-100.0); MEAN CORPUSCULAR HGB 22.7 pG CALC (26.0-32.0); MEAN CORPUSCULAR HGB CONC 32.5 g/L CALC (32.0-36.0); NEUT# 8.3 thou/uL (1.82-7.42); RED BLOOD COUNT 6.44 mill/uL (4.70-6.10); RED CELL DISTRI WIDTH 15.9 % (11.5-15.5)
[2019-06-15 19:14] LABS: ALBUMIN 5.3 g/dL (3.2-5.0); BILIRUBIN, TOTAL 0.6 mg/dL (0.0-1.4); POTASSIUM 4.4 mmol/l (3.5-5.1)
[2019-06-15 19:26] LABS: CREATININE 5.2 mg/dL (0.7-1.3)
[2019-06-15 19:27] LABS: TOTAL PROTEIN 11.6 g/dL (6.3-8.2)
[2019-06-15 20:04] LABS: URINE BLOOD DIPSTICK NEGATIVE (NEGATIVE); URINE COLOR YELLOW; URINE GLUCOSE - DIPSTICK NEGATIVE (NEGATIVE); URINE KETONE NEGATIVE (NEGATIVE); URINE LEUK ESTERASE NEGATIVE (NEGATIVE); URINE NITRITE - DIPSTICK NEGATIVE (Negative); URINE PROTEIN - DIPSTICK 30 mg/dL (NEG-TRACE); URINE SPECIFIC GRAVITY >=1.030; URINE UROBILINOGEN - DIPSTICK 0.2 E.U./dL (0.2)
[2019-06-15 20:07] LABS: URINE BILIRUBIN - DIPSTICK NEGATIVE (NEGATIVE); URINE RBC 0-2 RBC/hpf (0-5); URINE WBC 0-2 WBC/hpf (0-5)
[2019-06-15 20:08] LABS: BARBITURATES NEGATIVE (NEGATIVE); COCAINE NEGATIVE (NEGATIVE); METHADONE NEGATIVE (NEGATIVE); OXCYCODONE POSITIVE (NEGATIVE); TETRAHYDROCANNABIONOL NEGATIVE (NEGATIVE); TRICYLIC ANTIDEPRESSANTS NEGATIVE (NEGATIVE)
[2019-06-15 20:57] VITALS: BP 151/86
[2019-06-16 00:31] VITALS: BP 139/87
[2019-06-16 05:17] LABS: HEMATOCRIT 39.5 % (39.0-50.0); MEAN CELL VOLUME 70.3 fL CALC (80.0-100.0); MEAN CORPUSCULAR HGB 22.4 pG CALC (26.0-32.0); MEAN CORPUSCULAR HGB CONC 31.9 g/L CALC (32.0-36.0); RED BLOOD COUNT 5.62 mill/uL (4.70-6.10); RED CELL DISTRI WIDTH 15.3 % (11.5-15.5)
[2019-06-16 05:33] LABS: HEMOGLOBIN 12.6 g/dl (14.0-18.0)
[2019-06-16 05:41] LABS: POTASSIUM 4.7 mmol/l (3.5-5.1)
[2019-06-16 05:50] LABS: CREATININE 3.7 mg/dL (0.7-1.3)
[2019-06-16 08:00] VITALS: BP 134/73
[2019-06-16 12:00] VITALS: BP 167/84
[2019-06-16 15:00] VITALS: BP 164/88
[2019-06-16 19:30] VITALS: BP 168/82
[2019-06-16 23:59] VITALS: BP 173/95
[2019-06-17 04:36] VITALS: BP 178/82
[2019-06-17 05:25] LABS: HEMATOCRIT 38.8 % (39.0-50.0); HEMOGLOBIN 12.2 g/dl (14.0-18.0); MEAN CELL VOLUME 71.1 fL CALC (80.0-100.0); MEAN CORPUSCULAR HGB 22.3 pG CALC (26.0-32.0); MEAN CORPUSCULAR HGB CONC 31.4 g/L CALC (32.0-36.0); RED BLOOD COUNT 5.46 mill/uL (4.70-6.10); RED CELL DISTRI WIDTH 15.3 % (11.5-15.5)
[2019-06-17 05:51] LABS: CREATININE 1.9 mg/dL (0.7-1.3); POTASSIUM 5.4 mmol/l (3.5-5.1)
[2019-06-17 08:47] VITALS: BP 181/11
[2019-06-17 10:55] VITALS: BP 174/89
[2019-06-17 15:15] VITALS: BP 159/83
[2019-06-17 19:19] VITALS: BP 154/83
[2019-06-18 00:01] VITALS: BP 158/80
[2019-06-18 04:20] VITALS: BP 166/89
[2019-06-18 05:20] LABS: HEMOGLOBIN 12.4 g/dl (14.0-18.0); MEAN CORPUSCULAR HGB 22.6 pG CALC (26.0-32.0); MEAN CORPUSCULAR HGB CONC 31.8 g/L CALC (32.0-36.0); RED BLOOD COUNT 5.49 mill/uL (4.70-6.10); RED CELL DISTRI WIDTH 15.2 % (11.5-15.5)
[2019-06-18 05:30] VITALS: BP 183/100
[2019-06-18 05:39] LABS: ANION GAP 14 (6-22 (CALC)); BUN 23 mg/dL (9-20); BUN/CREATININE RATIO 17 (12-20 (CALC)); CARBON DIOXIDE 23 mmol/l (22-30); CHLORIDE 108 mmol/l (95-108); CREATININE 1.3 mg/dL (0.7-1.3); GFR > 60 ML/MIN (>=60 (CALC)); GFR FOR AFR.AMER. > 60 ML/MIN (>=60 (CALC)); SODIUM 140 mmol/l (137-146)
[2019-06-18 06:23] VITALS: BP 171/97
[2019-06-18 08:12] VITALS: BP 183/81
[2019-06-18 10:46] VITALS: BP 163/84
[2019-06-18] MEDS ORDERED: LISINOPRIL40 MG PO (11:30)
[2019-06-18] MEDS ORDERED: HYDRALAZINE50 MG PO (11:30)
[2019-06-18] MEDS ORDERED: JANUVIA100 MG PO (11:30)
== END 2019-06-18 12:36 | disposition home or self-care (01) | DRG 684 ==
LOC: ED 18:32 → ED-I 19:30 → ED 19:42 → ICU 19:43 → MS2 19:43
PROVIDERS: Emergency Medicine; Family Medicine; Internal Medicine; ADMIT Internal Medicine; ATTEND Internal Medicine
DX: N17.9 Acute kidney failure, unspecified (principal); E86.0 Dehydration; I16.0 Hypertensive urgency; I10 Essential (primary) hypertension; E11.9 Type 2 diabetes mellitus without complications; T38.3X6A Underdosing of insulin and oral hypoglycemic [antidiabetic] drugs, initial encounter; M10.9 Gout, unspecified; Z91.120 Patient's intentional underdosing of medication regimen due to financial hardship

== ENCOUNTER 2019-07-05 21:44 | Emergency (ER) | payer OTHER ==
[~2019-07-05] VITALS: Ht 170.2 cm; Wt 97.7 kg
[~2019-07-05 21:44] MED LIST changes: +HYDRALAZINE50 MG PO; +JANUVIA100 MG PO
[2019-07-05] MEDS ORDERED: INDOMETHACIN25 MG PO (22:41)
[2019-07-05] MEDS ORDERED: JANUVIA100 MG PO (23:04)
[2019-07-05 23:33] VITALS: BP 184/97
== END 2019-07-05 23:33 | disposition home or self-care (01) ==
LOC: ED 21:44
DX: M10.071 Idiopathic gout, right ankle and foot (principal); I10 Essential (primary) hypertension; E11.9 Type 2 diabetes mellitus without complications

== ENCOUNTER 2019-08-07 17:57 | Emergency (ER) | payer OTHER ==
[~2019-08-07] VITALS: Ht 170.2 cm; Wt 94.2 kg
[~2019-08-07 17:57] MED LIST changes: +INDOMETHACIN25 MG PO
[2019-08-07 19:51] LABS: HEMATOCRIT 38.1 % (39.0-50.0); IMMATURE GRANULOCYTES 0.3 % (0.0-5.0); MEAN CORPUSCULAR HGB 22.1 pG CALC (26.0-32.0); MEAN CORPUSCULAR HGB CONC 31.5 g/L CALC (32.0-36.0); NEUT# 6.46 thou/uL (1.82-7.42); RED BLOOD COUNT 5.44 mill/uL (4.70-6.10); RED CELL DISTRI WIDTH 15.8 % (11.5-15.5)
[2019-08-07 20:00] LABS: ALBUMIN 4.3 g/dL (3.2-5.0); ALKALINE PHOSPHATASE 86 u/l (38-126); ANION GAP 15 (6-22 (CALC)); BILIRUBIN, TOTAL 0.6 mg/dL (0.0-1.4); BUN 17 mg/dL (9-20); BUN/CREATININE RATIO 12 (12-20 (CALC)); CARBON DIOXIDE 22 mmol/l (22-30); CHLORIDE 103 mmol/l (95-108); CREATININE 1.5 mg/dL (0.7-1.3); GFR 51 ML/MIN (>=60 (CALC)); GFR FOR AFR.AMER. > 60 ML/MIN (>=60 (CALC)); POTASSIUM 4.1 mmol/l (3.5-5.1); SGOT/AST 31 u/l (17-59); SODIUM 136 mmol/l (137-146)
[2019-08-07 20:10] LABS: TOTAL PROTEIN 8.2 g/dL (6.3-8.2)
[2019-08-07] MEDS ORDERED: AMOXICILLIN500 MG PO (21:20)
[2019-08-07] MEDS ORDERED: CODEINE/GUAIFEN1 SOL PO (21:20)
[2019-08-07 22:10] VITALS: BP 145/80
== END 2019-08-07 22:01 | disposition home or self-care (01) ==
LOC: ED 17:57
PROVIDERS: Emergency Medicine
DX: J06.9 Acute upper respiratory infection, unspecified (principal); I10 Essential (primary) hypertension; E11.9 Type 2 diabetes mellitus without complications

== ENCOUNTER 2019-11-25 15:20 | Observation (INO) | payer OTHER ==
[~2019-11-25] VITALS: Ht 170.2 cm; Wt 100.0 kg
[2019-11-25] VITALS (9 sets, daily range): BP systolic 137–224; BP diastolic 57–100
[~2019-11-25 15:20] MED LIST changes: +CODEINE/GUAIFEN1 SOL PO
[2019-11-25 18:53] LABS: HEMOGLOBIN 13.8 g/dl (14.0-18.0); IMMATURE GRANULOCYTES 0.3 % (0.0-5.0); MEAN CELL VOLUME 70.7 fL CALC (80.0-100.0); MEAN CORPUSCULAR HGB 22.2 pG CALC (26.0-32.0); MEAN CORPUSCULAR HGB CONC 31.4 g/L CALC (32.0-36.0); NEUT# 5.71 thou/uL (1.82-7.42); RED BLOOD COUNT 6.22 mill/uL (4.70-6.10); RED CELL DISTRI WIDTH 15.1 % (11.5-15.5)
[2019-11-25 19:00] LABS: ALBUMIN 4.7 g/dL (3.2-5.0); ALKALINE PHOSPHATASE 97 u/l (38-126); BILIRUBIN, TOTAL 0.5 mg/dL (0.0-1.4); BUN 14 mg/dL (9-20); BUN/CREATININE RATIO 11 (12-20 (CALC)); CARBON DIOXIDE 26 mmol/l (22-30); CHLORIDE 106 mmol/l (95-108); CREATININE 1.2 mg/dL (0.7-1.3); GFR > 60 ML/MIN (>=60 (CALC)); GFR FOR AFR.AMER. > 60 ML/MIN (>=60 (CALC)); SGOT/AST 24 u/l (17-59); SODIUM 141 mmol/l (137-146); TOTAL PROTEIN 8.6 g/dL (6.3-8.2)
[2019-11-25 19:12] LABS: MYOGLOBIN 54 ng/mL (0 - 121)
[2019-11-25 19:19] LABS: ANION GAP 14 (6-22 (CALC)); POTASSIUM 4.5 mmol/l (3.5-5.1)
[2019-11-25] MEDS ORDERED: LISINOPRIL20 MG PO (21:15)
[2019-11-25 22:54] LABS: URINE BILIRUBIN - DIPSTICK NEGATIVE (NEGATIVE); URINE BLOOD DIPSTICK NEGATIVE (NEGATIVE); URINE COLOR YELLOW; URINE GLUCOSE - DIPSTICK NEGATIVE (NEGATIVE); URINE KETONE NEGATIVE (NEGATIVE); URINE LEUK ESTERASE NEGATIVE (NEGATIVE); URINE NITRITE - DIPSTICK NEGATIVE (Negative); URINE PROTEIN - DIPSTICK 100 mg/dL (NEG-TRACE); URINE SPECIFIC GRAVITY 1.025; URINE UROBILINOGEN - DIPSTICK 0.2 E.U./dL (0.2)
[2019-11-25 22:59] LABS: URINE RBC 0-2 RBC/hpf (0-5)
[2019-11-25 23:03] LABS: URINE BACTERIA FEW hpf; URINE EPITHELIAL CELLS FEW EPI/hpf (0-FEW); URINE WBC 0-2 WBC/hpf (0-5)
[2019-11-26] VITALS (8 sets, daily range): BP systolic 140–156; BP diastolic 51–82
[2019-11-26] MEDS ORDERED: AMLODIPINE BESYL5 MG PO (16:46)
[2019-11-26] MEDS ORDERED: HYDRALAZINE50 MG PO (16:46)
[2019-11-26] MEDS ORDERED: METFORMIN500 MG PO (16:47)
[2019-11-26] MEDS ORDERED: ZESTRIL40 MG PO (16:47)
[2019-11-26] MEDS ORDERED: ZYLOPRIM100 MG PO (16:49)
[2019-11-26] MEDS ORDERED: MEDDOSEPAK PO (16:49)
== END 2019-11-26 17:15 | disposition home or self-care (01) ==
LOC: ED 15:20 → ED-I 19:49 → ED 20:08 → ICU 20:09
PROVIDERS: Emergency Medicine; ADMIT Internal Medicine; ATTEND Internal Medicine
DX: I16.0 Hypertensive urgency (principal); I10 Essential (primary) hypertension; E11.9 Type 2 diabetes mellitus without complications; M79.671 Pain in right foot

== ENCOUNTER 2019-12-06 15:38 | Observation (INO) | payer OTHER ==
[2019-12-06] VITALS (9 sets, daily range): BP systolic 148–196; BP diastolic 61–103
[~2019-12-06] VITALS: Ht 170.2 cm; Wt 99.8 kg
[~2019-12-06 15:38] MED LIST changes: +AMLODIPINE BESYL5 MG PO; +LISINOPRIL20 MG PO; +MEDDOSEPAK PO
--- NOTE | 2019-12-06 16:03 | NUR ---
PT RETURNED TO WAITING ROOM
--- NOTE | 2019-12-06 17:03 | NUR ---
PT TO ROOM WITH STEADY GAIT
[2019-12-06 17:55] LABS: HEMATOCRIT 43.6 % (39.0-50.0); HEMOGLOBIN 13.6 g/dl (14.0-18.0); IMMATURE GRANULOCYTES 0.1 % (0.0-5.0); MEAN CELL VOLUME 71.7 fL CALC (80.0-100.0); MEAN CORPUSCULAR HGB 22.4 pG CALC (26.0-32.0); MEAN CORPUSCULAR HGB CONC 31.2 g/L CALC (32.0-36.0); NEUT# 4.67 thou/uL (1.82-7.42); RED BLOOD COUNT 6.08 mill/uL (4.70-6.10); RED CELL DISTRI WIDTH 14.8 % (11.5-15.5)
[2019-12-06 18:18] LABS: ALBUMIN 4.4 g/dL (3.2-5.0); ALKALINE PHOSPHATASE 105 u/l (38-126); ANION GAP 10 (6-22 (CALC)); BILIRUBIN, TOTAL 0.5 mg/dL (0.0-1.4); BUN 8 mg/dL (9-20); BUN/CREATININE RATIO 7 (12-20 (CALC)); CARBON DIOXIDE 29 mmol/l (22-30); CHLORIDE 102 mmol/l (95-108); CREATININE 1.1 mg/dL (0.7-1.3); GFR > 60 ML/MIN (>=60 (CALC)); GFR FOR AFR.AMER. > 60 ML/MIN (>=60 (CALC)); POTASSIUM 3.9 mmol/l (3.5-5.1); SGOT/AST 34 u/l (17-59); SODIUM 137 mmol/l (137-146); TOTAL PROTEIN 8.6 g/dL (6.3-8.2)
--- NOTE | 2019-12-06 19:00 | NUR ---
REPORT TODD TORRES
--- NOTE | 2019-12-06 19:19 | NUR ---
CARDENE GTT STARTED AT 5 MG BP 226/11.
--- NOTE | 2019-12-06 19:43 | NUR ---
Admission Note Report Given to: MAYE GHOSH Transported by: Wheelchair X Stretcher Transported with: X Nurse Transporter X Patent IV O2 X Customer Services Coordinator Location: ICU MS2
--- NOTE | 2019-12-06 19:45 | NUR ---
44 YR OLD BLACK MALE ADM ICU6 PER STRETCHER FROM ER. TRANSFERRED SELF TO BED. BED WEIGHT OBTAINED. GROUP DIRECTOR SHOWS SINUS RHYTHM HR 82. #20 LAC CARDENE GTT INFUSING @ 5MG/HR. HISTORY OBTAINED PER PT & ER RECORD. ORIENTED TO ROOM. FALL PRECAUTIONS INITIATED. SUPPER MEAL GIVEN.
--- NOTE | 2019-12-06 19:50 | NUR ---
PT. TAKEN TO ICU VIA STRETCHER, NO C/O.
--- NOTE | 2019-12-06 22:00 | NUR ---
watching tv. no c/o voiced. mystery shopper shows sinus rhythm hr 68.
[2019-12-07] VITALS (15 sets, daily range): BP systolic 144–194; BP diastolic 77–114
--- NOTE | 2019-12-07 00:30 | NUR ---
lab here. blood drawn.
--- NOTE | 2019-12-07 00:45 | NUR ---
pee millard infused & d/c'd. bp 148/81.
--- NOTE | 2019-12-07 02:00 | NUR ---
resting quietly. resp even & unlabored. no apparent distress.
--- NOTE | 2019-12-07 04:00 | NUR ---
eyes closed. no distress. monitoring engineer shows sinus rhythm hr 62.
--- NOTE | 2019-12-07 06:04 | NUR ---
lab here. blood drawn.
--- NOTE | 2019-12-07 07:00 | NUR ---
REPORT RECVD FROM AUGIE VILLAVICENCIO AT START OF SHIFT.
--- NOTE | 2019-12-07 08:00 | NUR ---
PT BREATHING EVEN/UNLABORED, STRONG PULSES. QUINONES. BREATING EVEN/UNLABORED, LUNGS CTA. NO NEURO ABNORMALITIES. NO SKIN ABNORMALITIES. SPEECH CLEAR. DNEIES ANY PAIN INCLUDING CHEST & HEADACHE. CALLBELL W/IN REACH.
[2019-12-07 08:15] LABS: HEMATOCRIT 44.8 % (39.0-50.0); HEMOGLOBIN 13.7 g/dl (14.0-18.0); IMMATURE GRANULOCYTES 0.2 % (0.0-5.0); MEAN CELL VOLUME 71.6 fL CALC (80.0-100.0); MEAN CORPUSCULAR HGB 21.9 pG CALC (26.0-32.0); MEAN CORPUSCULAR HGB CONC 30.6 g/L CALC (32.0-36.0); NEUT# 3.35 thou/uL (1.82-7.42); RED BLOOD COUNT 6.26 mill/uL (4.70-6.10); RED CELL DISTRI WIDTH 14.9 % (11.5-15.5)
--- NOTE | 2019-12-07 08:47 | NUR ---
DR GOMEZ @BEDSIDE WITH PT.
[2019-12-07 08:57] LABS: ALKALINE PHOSPHATASE 105 u/l (38-126); ANION GAP 11 (6-22 (CALC)); BILIRUBIN, TOTAL 0.7 mg/dL (0.0-1.4); BUN 8 mg/dL (9-20); BUN/CREATININE RATIO 8 (12-20 (CALC)); CARBON DIOXIDE 29 mmol/l (22-30); CHLORIDE 102 mmol/l (95-108); GFR > 60 ML/MIN (>=60 (CALC)); GFR FOR AFR.AMER. > 60 ML/MIN (>=60 (CALC)); SGOT/AST 27 u/l (17-59); SODIUM 138 mmol/l (137-146); TOTAL PROTEIN 7.7 g/dL (6.3-8.2)
--- NOTE | 2019-12-07 12:30 | NUR ---
LAB @BEDSIDE FOR DRAW.
--- NOTE | 2019-12-07 13:52 | NUR ---
MELO @BEDSIDE DISCUSSING PTS SATISFACTION.
--- NOTE | 2019-12-07 18:07 | NUR ---
PT STATES HE HAS TO LEAVE [facility] BC HE HAS VERY IMPORTANT STUFF TO DO TOMORROW. PT STATES HE IS PREPARED TO LEAVE [facility] IF HE IS NOT DC [facility]. AWARE.
--- NOTE | 2019-12-07 18:21 | NUR ---
RBVOT FOR NORVASC 5MG NO. FAXED TO [employer] STAT.
[2019-12-07] MEDS ORDERED: HYDRALAZINE100 MG PO (18:39)
[2019-12-07] MEDS ORDERED: HYDROCHLOROT25 MG PO (18:39)
[2019-12-07] MEDS ORDERED: ZESTRIL40 MG PO (18:39)
[2019-12-07] MEDS ORDERED: AMLODIPINE BESYL5 MG PO (18:39)
--- NOTE | 2019-12-07 19:30 | NUR ---
discharge instructions given per darryl jameson. iv d/c'd with cath intact. amb self to car.
== END 2019-12-07 19:30 | disposition home or self-care (01) ==
LOC: ED 15:38 → ED-I 18:30 → ED 18:48 → ICU 18:49
PROVIDERS: Family Medicine; ADMIT Internal Medicine; ATTEND Internal Medicine
DX: I16.0 Hypertensive urgency (principal); I10 Essential (primary) hypertension; E11.9 Type 2 diabetes mellitus without complications; M10.9 Gout, unspecified; Z79.84 Long term (current) use of oral hypoglycemic drugs

== ENCOUNTER 2020-11-01 01:22 | Emergency (ER) | payer OTHER ==
[~2020-11-01] VITALS: Ht 167.6 cm; Wt 106.8 kg
[~2020-11-01 01:22] MED LIST changes: +HYDRALAZINE100 MG PO; +HYDROCHLOROT25 MG PO
[2020-11-01 01:55] LABS: HEMATOCRIT 41.6 % (39.0-50.0); IMMATURE GRANULOCYTES 0.3 % (0.0-5.0); MEAN CELL VOLUME 71.5 fL CALC (80.0-100.0); MEAN CORPUSCULAR HGB 22.3 pG CALC (26.0-32.0); MEAN CORPUSCULAR HGB CONC 31.3 g/dL CAL (32.0-36.0); NEUT# 4.93 thou/uL (1.82-7.42); RED BLOOD COUNT 5.82 mill/uL (4.70-6.10); RED CELL DISTRI WIDTH 14.9 % (11.5-15.5)
[2020-11-01 02:13] LABS: ALBUMIN 4.1 g/dL (3.2-5.0); BILIRUBIN, TOTAL 0.5 mg/dL (0.0-1.4); POTASSIUM 3.6 mmol/l (3.5-5.1); TOTAL PROTEIN 8.2 g/dL (6.3-8.2)
[2020-11-01 03:05] VITALS: BP 133/75
[2020-11-01] MEDS ORDERED: ZOFRAN4 MG/TAB PO (03:16)
[2020-11-01] MEDS ORDERED: PROTONIX40 MG PO (03:16)
[2020-11-01 03:36] LABS: URINE BILIRUBIN - DIPSTICK NEGATIVE (NEGATIVE); URINE BLOOD DIPSTICK SMALL (NEGATIVE); URINE COLOR YELLOW; URINE GLUCOSE - DIPSTICK NEGATIVE (NEGATIVE); URINE KETONE NEGATIVE (NEGATIVE); URINE NITRITE - DIPSTICK NEGATIVE (Negative); URINE PH 5.5 (4.5-8.0); URINE PROTEIN - DIPSTICK >=300 mg/dL (NEG-TRACE); URINE SPECIFIC GRAVITY >=1.030; URINE UROBILINOGEN - DIPSTICK 0.2 E.U./dL (0.2)
[2020-11-01 03:43] LABS: URINE EPITHELIAL CELLS FEW EPI/hpf (0-FEW); URINE LEUK ESTERASE NEGATIVE (NEGATIVE); URINE WBC 0-2 WBC/hpf (0-5)
[2020-11-01 03:44] LABS: URINE BACTERIA MODERATE hpf
== END 2020-11-01 03:35 | disposition home or self-care (01) ==
LOC: ED 01:22
DX: U07.1 COVID-19 (principal); R11.2 Nausea with vomiting, unspecified; E86.0 Dehydration; I10 Essential (primary) hypertension; E11.9 Type 2 diabetes mellitus without complications; M10.9 Gout, unspecified; Z79.84 Long term (current) use of oral hypoglycemic drugs
CPT/HCPCS: J0131; S0164

== ENCOUNTER 2020-12-01 16:21 | Emergency (ER) | payer OTHER ==
[~2020-12-01] VITALS: Ht 167.6 cm; Wt 85.0 kg
[~2020-12-01 16:21] MED LIST changes: +PROTONIX40 MG PO; +ZOFRAN4 MG/TAB PO
[2020-12-01] MEDS ORDERED: FOLIC ACID1 MG PO (17:05)
[2020-12-01] MEDS ORDERED: ATORVASTATIN CA80 MG PO (17:06)
[2020-12-01] MEDS ORDERED: ELIQUIS5 MG PO (17:06)
[2020-12-01] MEDS ORDERED: LANTUS100 UNIT/M SC (17:07)
[2020-12-01] MEDS ORDERED: HUMALOG100 UNIT/M SC (17:07)
[2020-12-01 17:12] LABS: HEMATOCRIT 33.3 % (39.0-50.0); HEMOGLOBIN 10.5 g/dl (14.0-18.0); IMMATURE GRANULOCYTES 0.8 % (0.0-5.0); MEAN CELL VOLUME 71.6 fL CALC (80.0-100.0); MEAN CORPUSCULAR HGB 22.6 pG CALC (26.0-32.0); MEAN CORPUSCULAR HGB CONC 31.5 g/dL CAL (32.0-36.0); NEUT# 8.03 thou/uL (1.82-7.42); RED BLOOD COUNT 4.65 mill/uL (4.70-6.10); RED CELL DISTRI WIDTH 15.9 % (11.5-15.5)
[2020-12-01 17:35] LABS: URINE BILIRUBIN - DIPSTICK NEGATIVE (NEGATIVE); URINE BLOOD DIPSTICK NEGATIVE (NEGATIVE); URINE CLARITY CLEAR; URINE COLOR YELLOW; URINE GLUCOSE - DIPSTICK NEGATIVE (NEGATIVE); URINE KETONE NEGATIVE (NEGATIVE); URINE LEUK ESTERASE NEGATIVE (NEGATIVE); URINE LEUK ESTERASE NEGATIVE (Negative); URINE NITRITE - DIPSTICK NEGATIVE (Negative); URINE PH 5.5 (4.5-8.0); URINE PROTEIN - DIPSTICK 100 mg/dL (NEG-TRACE); URINE SPECIFIC GRAVITY 1.025; URINE UROBILINOGEN - DIPSTICK 0.2 E.U./dL (0.2)
[2020-12-01 17:37] LABS: BILIRUBIN, TOTAL 0.6 mg/dL (0.0-1.4); TOTAL PROTEIN 7.9 g/dL (6.3-8.2)
[2020-12-01 17:42] LABS: POTASSIUM 4.6 mmol/l (3.5-5.1)
[2020-12-01 18:50] VITALS: BP 145/73
== END 2020-12-01 19:00 | disposition home or self-care (01) ==
LOC: ED 16:21
DX: E11.9 Type 2 diabetes mellitus without complications (principal); I10 Essential (primary) hypertension; M10.9 Gout, unspecified; Z79.4 Long term (current) use of insulin

== ENCOUNTER 2021-05-16 09:08 | Emergency (ER) | payer OTHER ==
[~2021-05-16 09:08] MED LIST changes: +ATORVASTATIN CA80 MG PO; +ELIQUIS5 MG PO; +FOLIC ACID1 MG PO; +HUMALOG100 UNIT/M SC; +LANTUS100 UNIT/M SC
[2021-05-16 11:09] LABS: HEMOGLOBIN 12.4 g/dl (14.0-18.0); IMMATURE GRANULOCYTES 0.2 % (0.0-5.0); MEAN CELL VOLUME 70.8 fL CALC (80.0-100.0); MEAN CORPUSCULAR HGB 22.5 pG CALC (26.0-32.0); MEAN CORPUSCULAR HGB CONC 31.8 g/dL CAL (32.0-36.0); NEUT# 6.96 thou/uL (1.82-7.42); RED BLOOD COUNT 5.51 mill/uL (4.70-6.10)
[2021-05-16 11:26] LABS: ALBUMIN 4.2 g/dL (3.2-5.0); ALKALINE PHOSPHATASE 118 u/l (38-126); ANION GAP 14 (6-22 (CALC)); BILIRUBIN, TOTAL 0.6 mg/dL (0.0-1.4); BUN 14 mg/dL (9-20); BUN/CREATININE RATIO 9 (12-20 (CALC)); CARBON DIOXIDE 25 mmol/l (22-30); CHLORIDE 102 mmol/l (95-108); CREATININE 1.5 mg/dL (0.7-1.3); GFR 51 ML/MIN (>=60 (CALC)); GFR FOR AFR.AMER. > 60 ML/MIN (>=60 (CALC)); POTASSIUM 4.6 mmol/l (3.5-5.1); SGOT/AST 29 u/l (17-59); SODIUM 136 mmol/l (137-146); TOTAL PROTEIN 7.9 g/dL (6.3-8.2)
[2021-05-16] MEDS ORDERED: INDOMETHACIN75 MG PO ×3 (12:57→13:31)
[2021-05-16 13:13] VITALS: BP 172/94
== END 2021-05-16 13:36 | disposition home or self-care (01) ==
LOC: ED 09:08
PROVIDERS: Family Medicine
DX: M10.072 Idiopathic gout, left ankle and foot (principal); I10 Essential (primary) hypertension; E11.9 Type 2 diabetes mellitus without complications; Z79.4 Long term (current) use of insulin

== ENCOUNTER 2021-07-13 13:12 | Emergency (ER) | payer OTHER ==
[~2021-07-13] VITALS: Ht 167.6 cm; Wt 99.5 kg
[~2021-07-13 13:12] MED LIST changes: +INDOMETHACIN75 MG PO
[2021-07-13] MEDS ORDERED: ALLERGY RELF10 M3 PO (13:29)
[2021-07-13] MEDS ORDERED: LISINOPRIL40 MG PO (14:16)
[2021-07-13 14:32] VITALS: BP 178/82
== END 2021-07-13 14:32 | disposition home or self-care (01) ==
LOC: ED 13:12
DX: H91.91 Unspecified hearing loss, right ear (principal); I10 Essential (primary) hypertension; E11.9 Type 2 diabetes mellitus without complications; M10.9 Gout, unspecified; T46.4X6A Underdosing of angiotensin-converting-enzyme inhibitors, initial encounter; Z91.128 Patient's intentional underdosing of medication regimen for other reason; Z79.4 Long term (current) use of insulin

== ENCOUNTER 2021-09-17 06:48 | Emergency (ER) | payer OTHER ==
[~2021-09-17] VITALS: Ht 167.6 cm; Wt 102.0 kg
[~2021-09-17 06:48] MED LIST changes: +ALLERGY RELF10 M3 PO
[2021-09-17] MEDS ORDERED: NORVASC5 M1 PO (07:11)
[2021-09-17] MEDS ORDERED: NORMODYNE/TRAN100 MG PO (07:11)
[2021-09-17] MEDS ORDERED: INDOMETHACIN50 MG PO (08:02)
[2021-09-17 08:37] VITALS: BP 179/102
== END 2021-09-17 08:37 | disposition home or self-care (01) ==
LOC: ED 06:48
DX: M25.522 Pain in left elbow (principal); I10 Essential (primary) hypertension; E11.9 Type 2 diabetes mellitus without complications; E66.9 Obesity, unspecified; M10.9 Gout, unspecified; Z79.4 Long term (current) use of insulin

== ENCOUNTER 2022-06-10 13:55 | Emergency (ER) | payer OTHER ==
[~2022-06-10] VITALS: Ht 167.6 cm; Wt 106.8 kg
[2022-06-10] VITALS (11 sets, daily range): BP systolic 131–189; BP diastolic 79–111
[~2022-06-10 13:55] MED LIST changes: +INDOMETHACIN50 MG PO; +NORMODYNE/TRAN100 MG PO; +NORVASC5 M1 PO
[2022-06-10 14:47] LABS: HEMATOCRIT 37.9 % (39.0-50.0); HEMOGLOBIN 12.2 g/dl (14.0-18.0); MEAN CELL VOLUME 71.4 fL CALC (80.0-100.0); MEAN CORPUSCULAR HGB CONC 32.2 g/dL CAL (32.0-36.0); NEUT# 4.31 thou/uL (1.82-7.42); RED BLOOD COUNT 5.31 mill/uL (4.70-6.10); RED CELL DISTRI WIDTH 14.8 % (11.5-15.5)
[2022-06-10 15:03] LABS: ALBUMIN 4.3 g/dL (3.2-5.0); BILIRUBIN, TOTAL 0.4 mg/dL (0.0-1.4); CREATININE 2.3 mg/dL (0.7-1.3); TOTAL PROTEIN 8.2 g/dL (6.3-8.2)
[2022-06-10 15:04] LABS: POTASSIUM 5.2 mmol/l (3.5-5.1)
[2022-06-10] MEDS ORDERED: ZESTRIL40 MG PO (15:21)
[2022-06-10] MEDS ORDERED: MECLIZINE 2525 MG PO (15:31)
== END 2022-06-10 16:38 | disposition home or self-care (01) ==
LOC: ED 13:55
PROVIDERS: Family Medicine
DX: R42 Dizziness and giddiness (principal); I10 Essential (primary) hypertension; E11.9 Type 2 diabetes mellitus without complications; M10.9 Gout, unspecified; Z79.4 Long term (current) use of insulin

== ENCOUNTER 2022-06-11 14:15 | Emergency (ER) | payer OTHER ==
[~2022-06-11] VITALS: Ht 167.6 cm; Wt 106.8 kg
[2022-06-11] VITALS (10 sets, daily range): BP systolic 138–177; BP diastolic 81–108
[~2022-06-11 14:15] MED LIST changes: +MECLIZINE 2525 MG PO
[2022-06-11 16:37] LABS: HEMATOCRIT 40.2 % (39.0-50.0); HEMOGLOBIN 12.9 g/dl (14.0-18.0); IMMATURE GRANULOCYTES 0.6 % (0.0-5.0); MEAN CELL VOLUME 71.9 fL CALC (80.0-100.0); MEAN CORPUSCULAR HGB 23.1 pG CALC (26.0-32.0); MEAN CORPUSCULAR HGB CONC 32.1 g/dL CAL (32.0-36.0); NEUT# 6.66 thou/uL (1.82-7.42); RED BLOOD COUNT 5.59 mill/uL (4.70-6.10); RED CELL DISTRI WIDTH 15.1 % (11.5-15.5)
[2022-06-11 17:09] LABS: ALBUMIN 4.7 g/dL (3.2-5.0); BILIRUBIN, TOTAL 0.5 mg/dL (0.0-1.4); CREATININE 2.1 mg/dL (0.7-1.3); TOTAL PROTEIN 8.6 g/dL (6.3-8.2)
[2022-06-11 17:10] LABS: POTASSIUM 5.4 mmol/l (3.5-5.1)
== END 2022-06-11 18:13 | disposition home or self-care (01) ==
LOC: ED 14:15
PROVIDERS: Family Medicine
DX: R42 Dizziness and giddiness (principal); I10 Essential (primary) hypertension; E66.9 Obesity, unspecified; E11.9 Type 2 diabetes mellitus without complications; Z79.4 Long term (current) use of insulin

== ENCOUNTER 2022-06-12 09:34 | Inpatient (IN) | payer OTHER ==
[2022-06-12] VITALS (16 sets, daily range): BP systolic 147–202; BP diastolic 78–130
[~2022-06-12] VITALS: Ht 167.6 cm; Wt 105.0 kg
[2022-06-12 10:22] LABS: HEMATOCRIT 41.1 % (39.0-50.0); HEMOGLOBIN 13.1 g/dl (14.0-18.0); IMMATURE GRANULOCYTES 0.2 % (0.0-5.0); MEAN CELL VOLUME 72.5 fL CALC (80.0-100.0); MEAN CORPUSCULAR HGB 23.1 pG CALC (26.0-32.0); MEAN CORPUSCULAR HGB CONC 31.9 g/dL CAL (32.0-36.0); NEUT# 5.1 thou/uL (1.82-7.42); RED BLOOD COUNT 5.67 mill/uL (4.70-6.10); RED CELL DISTRI WIDTH 15.3 % (11.5-15.5)
[2022-06-12 10:34] LABS: ALBUMIN 4.7 g/dL (3.2-5.0); BILIRUBIN, TOTAL 0.5 mg/dL (0.0-1.4); CREATININE 2.1 mg/dL (0.7-1.3); TOTAL PROTEIN 8.4 g/dL (6.3-8.2)
[2022-06-12 10:55] LABS: POTASSIUM 5.3 mmol/l (3.5-5.1)
[2022-06-12 13:06] LABS: URINE BILIRUBIN - DIPSTICK NEGATIVE (NEGATIVE); URINE BLOOD DIPSTICK TRACE-INTACT (NEGATIVE); URINE COLOR YELLOW; URINE GLUCOSE - DIPSTICK NEGATIVE (NEGATIVE); URINE KETONE NEGATIVE (NEGATIVE); URINE LEUK ESTERASE NEGATIVE (NEGATIVE); URINE PH 5.5 (4.5-8.0); URINE PROTEIN - DIPSTICK 100 mg/dL (NEG-TRACE); URINE SPECIFIC GRAVITY 1.025; URINE UROBILINOGEN - DIPSTICK 0.2 E.U./dL (0.2)
[2022-06-12 13:09] LABS: URINE NITRITE - DIPSTICK NEGATIVE (Negative)
[2022-06-12 13:21] LABS: URINE SQUAMOUS EPITHELIAL CELL FEW EPI/hpf (0-FEW); URINE WBC 0-2 WBC/hpf (0-5)
[2022-06-12 13:22] LABS: URINE HYALINE CAST FEW lpf (NONE-RARE)
[2022-06-13] VITALS (9 sets, daily range): BP systolic 146–178; BP diastolic 76–106
[2022-06-13 05:34] LABS: HDL CHOLESTEROL 45 mg/dL (>=40)
[2022-06-13 05:47] LABS: CHOLESTEROL HDL RATIO 9.3 (<4.4 (CALC)); TOTAL CHOLESTEROL 418 mg/dl (0-199); TOTAL TRIGLYCERIDES 461 mg/dl (30-149)
[2022-06-13 18:45] LABS: CREATININE 2.1 mg/dL (0.7-1.3); POTASSIUM 4.3 mmol/l (3.5-5.1)
[2022-06-14] VITALS (9 sets, daily range): BP systolic 152–184; BP diastolic 81–101
[2022-06-14 07:25] LABS: HEMATOCRIT 35.4 % (39.0-50.0); HEMOGLOBIN 11.3 g/dl (14.0-18.0); MEAN CELL VOLUME 72.5 fL CALC (80.0-100.0); MEAN CORPUSCULAR HGB 23.2 pG CALC (26.0-32.0); MEAN CORPUSCULAR HGB CONC 31.9 g/dL CAL (32.0-36.0); RED BLOOD COUNT 4.88 mill/uL (4.70-6.10); RED CELL DISTRI WIDTH 14.9 % (11.5-15.5)
[2022-06-14 07:38] LABS: CREATININE 1.9 mg/dL (0.7-1.3); MAGNESIUM 1.8 mg/dL (1.6-2.3); POTASSIUM 4.2 mmol/l (3.5-5.1)
[2022-06-15] VITALS (9 sets, daily range): BP systolic 136–162; BP diastolic 70–97
[2022-06-15 08:03] LABS: CREATININE 1.8 mg/dL (0.7-1.3); POTASSIUM 4.5 mmol/l (3.5-5.1)
[2022-06-15] MEDS ORDERED: LIPITOR80 M1 PO (11:54)
[2022-06-15] MEDS ORDERED: LANTUS SOL100 UNIT/M SC (11:55)
[2022-06-15] MEDS ORDERED: ADLT ASA LOW81 MG PO (11:55)
[2022-06-15] MEDS ORDERED: ZESTRIL40 MG PO (11:56)
[2022-06-15] MEDS ORDERED: PLAVIX75 MG PO (11:56)
[2022-06-15] MEDS ORDERED: APRESOLINE50 MG PO (11:57)
[2022-06-16] VITALS: BP 142/72
[2022-06-16 03:48] VITALS: BP 130/70
[2022-06-16 04:00] VITALS: BP 130/70
[2022-06-16 06:17] LABS: CREATININE 1.8 mg/dL (0.7-1.3); POTASSIUM 4.8 mmol/l (3.5-5.1)
[2022-06-16 08:29] VITALS: BP 148/83
[2022-06-16 10:05] VITALS: BP 199/99
[2022-06-16] MEDS ORDERED: HUMALOG KW100 UNIT/M SC (11:26)
== END 2022-06-16 14:00 | disposition home or self-care (01) | DRG 65 ==
LOC: ED 09:34 → ED-I 10:55 → ED 11:35 → MS2 11:36
PROVIDERS: Family Medicine; ADMIT Internal Medicine; ATTEND Internal Medicine
DX: I63.542 Cerebral infarction due to unspecified occlusion or stenosis of left cerebellar artery (principal); N17.9 Acute kidney failure, unspecified; R42 Dizziness and giddiness; R29.700 NIHSS score 0; E11.22 Type 2 diabetes mellitus with diabetic chronic kidney disease; I12.9 Hypertensive chronic kidney disease with stage 1 through stage 4 chronic kidney disease, or unspecified chronic kidney disease; E11.65 Type 2 diabetes mellitus with hyperglycemia; N18.30 Chronic kidney disease, stage 3 unspecified; E86.0 Dehydration; E78.5 Hyperlipidemia, unspecified; E66.9 Obesity, unspecified; M10.9 Gout, unspecified; Z68.37 Body mass index [BMI] 37.0-37.9, adult; Z79.4 Long term (current) use of insulin; Z20.822 Contact with and (suspected) exposure to COVID-19
CPT/HCPCS: J1650; Q3014

== ENCOUNTER 2022-09-02 15:34 | Inpatient (IN) | payer OTHER ==
[~2022-09-02] VITALS: Ht 167.6 cm; Wt 102.0 kg
[2022-09-02] VITALS (32 sets, daily range): BP systolic 109–241; BP diastolic 70–120
[~2022-09-02 15:34] MED LIST changes: +ADLT ASA LOW81 MG PO; +APRESOLINE50 MG PO; +HUMALOG KW100 UNIT/M SC; +LANTUS SOL100 UNIT/M SC; +LIPITOR80 M1 PO; +PLAVIX75 MG PO
[2022-09-02 17:39] LABS: HEMATOCRIT 38.3 % (39.0-50.0); IMMATURE GRANULOCYTES 0.4 % (0.0-5.0); MEAN CELL VOLUME 71.1 fL CALC (80.0-100.0); MEAN CORPUSCULAR HGB 22.3 pG CALC (26.0-32.0); MEAN CORPUSCULAR HGB CONC 31.3 g/dL CAL (32.0-36.0); NEUT# 6.21 thou/uL (1.82-7.42); RED BLOOD COUNT 5.39 mill/uL (4.70-6.10); RED CELL DISTRI WIDTH 15.3 % (11.5-15.5)
[2022-09-02 17:52] LABS: ALBUMIN 4.2 g/dL (3.2-5.0); ALKALINE PHOSPHATASE 102 u/l (38-126); ANION GAP 11 (6-22 (CALC)); BILIRUBIN, TOTAL 0.5 mg/dL (0.0-1.4); BUN 15 mg/dL (9-20); BUN/CREATININE RATIO 8 (12-20 (CALC)); CHLORIDE 107 mmol/l (95-108); CREATININE 1.8 mg/dL (0.7-1.3); GFR FOR AFR.AMER. 50 ML/MIN (>=60 (CALC)); GFR OTHER RACES 41 ML/MIN (>=60 (CALC)); SGOT/AST 27 u/l (17-59); SODIUM 141 mmol/l (137-146); TOTAL PROTEIN 8.2 g/dL (6.3-8.2)
[2022-09-02 17:57] LABS: CARBON DIOXIDE 27 mmol/l (22-30)
[2022-09-03] VITALS (58 sets, daily range): BP systolic 130–194; BP diastolic 62–107
[2022-09-03] MEDS ORDERED: APRESOLINE50 MG PO (17:11)
== END 2022-09-03 17:45 | disposition home or self-care (01) | DRG 305 ==
LOC: ED 15:34 → ED-I 18:56 → ED 19:07 → ICU 19:08
PROVIDERS: Family Medicine; ADMIT Internal Medicine; ATTEND Internal Medicine
DX: I16.0 Hypertensive urgency (principal); I12.9 Hypertensive chronic kidney disease with stage 1 through stage 4 chronic kidney disease, or unspecified chronic kidney disease; E11.22 Type 2 diabetes mellitus with diabetic chronic kidney disease; N18.30 Chronic kidney disease, stage 3 unspecified; M10.072 Idiopathic gout, left ankle and foot; Z86.73 Personal history of transient ischemic attack (TIA), and cerebral infarction without residual deficits; Z79.4 Long term (current) use of insulin

== ENCOUNTER 2022-10-31 02:05 | Emergency (ER) | payer OTHER ==
[~2022-10-31] VITALS: Ht 167.6 cm; Wt 102.0 kg
[2022-10-31 02:14] VITALS: BP 238/128
[2022-10-31 02:30] VITALS: BP 219/120
[2022-10-31] MEDS ORDERED: INDOMETHACIN75 MG PO (02:35)
[2022-10-31] MEDS ORDERED: COLCHICINE0.6 M2 PO (02:35)
[2022-10-31 02:45] VITALS: BP 226/121
[2022-10-31 02:46] VITALS: BP 226/121
== END 2022-10-31 02:56 | disposition home or self-care (01) ==
LOC: ED 02:05
DX: M10.071 Idiopathic gout, right ankle and foot (principal); I16.0 Hypertensive urgency; I10 Essential (primary) hypertension; E11.9 Type 2 diabetes mellitus without complications; Z79.4 Long term (current) use of insulin

== ENCOUNTER 2022-11-16 15:41 | Observation (INO) | payer OTHER ==
[2022-11-16] VITALS (13 sets, daily range): BP systolic 154–210; BP diastolic 84–114
[~2022-11-16] VITALS: Ht 167.6 cm; Wt 104.3 kg
[2022-11-16 17:08] LABS: BASO% 0.4 % (0-3); EOS% 4.6 % (0-8); HEMATOCRIT 42.1 % (39.0-50.0); HEMOGLOBIN 13.2 g/dl (14.0-18.0); LYMPH% 29.8 % (15-41); MEAN CELL VOLUME 68.3 fL CALC (80.0-100.0); MEAN CORPUSCULAR HGB 21.4 pG CALC (26.0-32.0); MEAN CORPUSCULAR HGB CONC 31.4 g/dL CAL (32.0-36.0); MONO% 5.8 % (2-13); NEUT# 4.38 thou/uL (1.82-7.42); NEUT% 59.4 % (42-76); RED BLOOD COUNT 6.16 mill/uL (4.70-6.10); RED CELL DISTRI WIDTH 16.7 % (11.5-15.5)
[2022-11-16 17:17] LABS: ALBUMIN 4.2 g/dL (3.2-5.0); BILIRUBIN, TOTAL 0.6 mg/dL (0.2-1.3); CREATININE 1.8 mg/dL (0.7-1.3); POTASSIUM 4.2 mmol/l (3.5-5.1); TOTAL PROTEIN 7.9 g/dL (6.3-8.2)
[2022-11-16] MEDS ORDERED: AMLODIPINE BESY10 MG PO (18:31)
[2022-11-16] MEDS ORDERED: LISINOPRIL10 MG PO (18:32)
[2022-11-16] MEDS ORDERED: NORMODYNE/TRAN100 MG PO (18:32)
[2022-11-16] MEDS ORDERED: HYDRALAZINE50 MG PO (18:32)
[2022-11-16 19:03] LABS: PROTHROMBIN TIME 10.4 SECONDS (9.0-12.5)
[2022-11-17] VITALS (10 sets, daily range): BP systolic 124–182; BP diastolic 45–91
[2022-11-17 05:45] LABS: BASO% 0.6 % (0-3); EOS% 5.3 % (0-8); HEMATOCRIT 40.1 % (39.0-50.0); HEMOGLOBIN 12.5 g/dl (14.0-18.0); LYMPH% 41.8 % (15-41); MEAN CELL VOLUME 69.1 fL CALC (80.0-100.0); MEAN CORPUSCULAR HGB 21.6 pG CALC (26.0-32.0); MEAN CORPUSCULAR HGB CONC 31.2 g/dL CAL (32.0-36.0); MONO% 8.4 % (2-13); NEUT# 3.15 thou/uL (1.82-7.42); NEUT% 43.9 % (42-76); RED BLOOD COUNT 5.8 mill/uL (4.70-6.10); RED CELL DISTRI WIDTH 16.5 % (11.5-15.5)
[2022-11-17 06:20] LABS: ALBUMIN 3.6 g/dL (3.2-5.0); BILIRUBIN, TOTAL 0.4 mg/dL (0.2-1.3); CHOLESTEROL HDL RATIO 4.9 (<4.4 (CALC)); CREATININE 1.7 mg/dL (0.7-1.3); MAGNESIUM 1.6 mg/dL (1.6-2.3); POTASSIUM 3.9 mmol/l (3.5-5.1); TOTAL PROTEIN 6.6 g/dL (6.3-8.2)
[2022-11-17 11:52] LABS: URINE BILIRUBIN - DIPSTICK NEGATIVE (NEGATIVE); URINE BLOOD DIPSTICK NEGATIVE (NEGATIVE); URINE COLOR YELLOW; URINE GLUCOSE - DIPSTICK NEGATIVE (NEGATIVE); URINE KETONE NEGATIVE (NEGATIVE); URINE LEUK ESTERASE NEGATIVE (NEGATIVE); URINE PROTEIN - DIPSTICK 100 mg/dL (NEG-TRACE); URINE SPECIFIC GRAVITY 1.025; URINE UROBILINOGEN - DIPSTICK 0.2 E.U./dL (0.2)
[2022-11-17 11:53] LABS: URINE NITRITE - DIPSTICK NEGATIVE (Negative); URINE RBC 0-2 RBC/hpf (0-5); URINE WBC 0-2 WBC/hpf (0-5)
[2022-11-17] MEDS ORDERED: NORMODYNE/TRAN100 MG PO (13:03)
== END 2022-11-17 15:56 | disposition home or self-care (01) ==
LOC: ED 15:41 → ED-I 18:15 → ED 18:34 → MS2 18:35
PROVIDERS: Family Medicine; ADMIT Internal Medicine; ATTEND Internal Medicine
DX: I16.1 Hypertensive emergency (principal); I10 Essential (primary) hypertension; E11.9 Type 2 diabetes mellitus without complications; M10.9 Gout, unspecified; Z86.73 Personal history of transient ischemic attack (TIA), and cerebral infarction without residual deficits
CPT/HCPCS: G0378; J2060

== ENCOUNTER 2022-11-19 17:54 | Observation (INO) | payer OTHER ==
[2022-11-19] VITALS (21 sets, daily range): BP systolic 151–198; BP diastolic 81–110
[~2022-11-19] VITALS: Ht 167.6 cm; Wt 90.0 kg
[~2022-11-19 17:54] MED LIST changes: +AMLODIPINE BESY10 MG PO; +LISINOPRIL10 MG PO
--- NOTE | 2022-11-19 18:00 | NUR ---
PT AMBULATES TO RM 14, NO ACUTE DISTRESS, HOOKED UP TO MONITOR AND PROVIDER MADE AWARE OF PT STATUS. PT DENIES ANY NEW ONSET WEAKNESS, OR FOCAL DEFECITS. NIH PERFOMRED IMMEDIATELY = 0.
[2022-11-19 19:10] LABS: BASO% 0.5 % (0-3); EOS% 4.3 % (0-8); HEMOGLOBIN 13.3 g/dl (14.0-18.0); IMMATURE GRANULOCYTES 0.1 % (0.0-5.0); LYMPH% 32.1 % (15-41); MEAN CELL VOLUME 69.8 fL CALC (80.0-100.0); MEAN CORPUSCULAR HGB 21.6 pG CALC (26.0-32.0); MEAN CORPUSCULAR HGB CONC 30.9 g/dL CAL (32.0-36.0); MONO% 5.8 % (2-13); NEUT# 4.35 thou/uL (1.82-7.42); NEUT% 57.2 % (42-76); RED BLOOD COUNT 6.16 mill/uL (4.70-6.10); RED CELL DISTRI WIDTH 17.4 % (11.5-15.5)
--- NOTE | 2022-11-19 19:13 | NUR ---
PT MEDICATED FOR ELEVATED BP VIA IV. REPORT PROVIDED TO AUDREY RODGERS
[2022-11-19 19:22] LABS: ALBUMIN 4.2 g/dL (3.2-5.0); BILIRUBIN, TOTAL 0.3 mg/dL (0.2-1.3); CREATININE 1.6 mg/dL (0.7-1.3); POTASSIUM 4.1 mmol/l (3.5-5.1); TOTAL PROTEIN 7.7 g/dL (6.3-8.2)
--- NOTE | 2022-11-19 19:30 | NUR ---
PT BLOOD PRESSURE ELEVATED, NOTIFIED.
--- NOTE | 2022-11-19 23:40 | NUR ---
REPORT GIVEN TO DWAINE VENTURA, PT ALERT, ORIENTED AND AMBULATORY. PT STILL IN HYPERTENSIVE CRISIS. ALL OTHER VITALS ARE STABLE. PT IN GOWN AND IN ER WITH ICU NURSE.
[2022-11-20] VITALS (40 sets, daily range): BP systolic 113–175; BP diastolic 54–132
--- NOTE | 2022-11-20 08:37 | NUR ---
PT AT REST IN THE BED UPON INITIAL INTERACTION, WAKENED WHEN DR GOMEZ ROUNDED. PT ALERT, ORIENTED X 3, IN NO DISTRESS. PT STATES CAME IN DUE TO DIZZINESS WHILE AT WORK. BP 148/86.
--- NOTE | 2022-11-20 11:21 | NUR ---
PT RESTING QUIETLY , NO COMPLAINTS, CARDIZEM GTT REMAINS ON PER ORDER. VITAL SIGNS STABLE.
[2022-11-20] MEDS ORDERED: MECLIZINE25 MG PO (12:39)
--- NOTE | 2022-11-20 13:19 | NUR ---
PT DISCHARGED FROM [facility], LEAVES HOSPITAL AMBULATORY IN STABLE CONDITION. PT VERBALIZED UNDERSTANDING OF DC INSTRUCTIONS.
== END 2022-11-20 13:15 | disposition home or self-care (01) ==
LOC: ED 17:54 → ED-I 20:33 → ED 21:00 → ED-I 21:01 → ICU 21:01
PROVIDERS: Family Medicine; ADMIT Internal Medicine; ATTEND Internal Medicine
DX: I16.0 Hypertensive urgency (principal); I12.9 Hypertensive chronic kidney disease with stage 1 through stage 4 chronic kidney disease, or unspecified chronic kidney disease; N18.30 Chronic kidney disease, stage 3 unspecified; E11.65 Type 2 diabetes mellitus with hyperglycemia; Z86.73 Personal history of transient ischemic attack (TIA), and cerebral infarction without residual deficits

== ENCOUNTER 2022-11-29 18:04 | Emergency (ER) | payer OTHER ==
[~2022-11-29] VITALS: Ht 167.6 cm; Wt 95.8 kg
[~2022-11-29 18:04] MED LIST changes: +MECLIZINE25 MG PO
[2022-11-29 18:22] VITALS: BP 162/96
[2022-11-29 18:31] VITALS: BP 170/101
[2022-11-29] MEDS ORDERED: INDOMETHACIN75 MG PO (18:52)
[2022-11-29 19:16] VITALS: BP 178/107
[2022-11-29 19:31] VITALS: BP 198/110
== END 2022-11-29 19:32 | disposition home or self-care (01) ==
LOC: ED 18:04
DX: M10.072 Idiopathic gout, left ankle and foot (principal); I10 Essential (primary) hypertension; E11.9 Type 2 diabetes mellitus without complications; Z86.73 Personal history of transient ischemic attack (TIA), and cerebral infarction without residual deficits

== ENCOUNTER 2022-12-04 15:30 | Emergency (ER) | payer OTHER ==
[~2022-12-04] VITALS: Ht 167.6 cm; Wt 95.2 kg
[2022-12-04] VITALS (7 sets, daily range): BP systolic 152–186; BP diastolic 91–98
[2022-12-04 16:43] LABS: BASO% 0.3 % (0-3); EOS% 2.7 % (0-8); HEMATOCRIT 44.8 % (39.0-50.0); HEMOGLOBIN 13.5 g/dl (14.0-18.0); IMMATURE GRANULOCYTES 0.3 % (0.0-5.0); LYMPH% 27.4 % (15-41); MEAN CELL VOLUME 69.3 fL CALC (80.0-100.0); MEAN CORPUSCULAR HGB 20.9 pG CALC (26.0-32.0); MEAN CORPUSCULAR HGB CONC 30.1 g/dL CAL (32.0-36.0); MONO% 8.3 % (2-13); NEUT# 6.97 thou/uL (1.82-7.42); RED BLOOD COUNT 6.46 mill/uL (4.70-6.10); RED CELL DISTRI WIDTH 17.6 % (11.5-15.5)
[2022-12-04 16:56] LABS: ALBUMIN 4.6 g/dL (3.2-5.0); BILIRUBIN, TOTAL 0.4 mg/dL (0.2-1.3); POTASSIUM 4.3 mmol/l (3.5-5.1)
== END 2022-12-04 18:15 | disposition home or self-care (01) ==
LOC: ED 15:30
PROVIDERS: Family Medicine
DX: R42 Dizziness and giddiness (principal); I12.9 Hypertensive chronic kidney disease with stage 1 through stage 4 chronic kidney disease, or unspecified chronic kidney disease; E11.22 Type 2 diabetes mellitus with diabetic chronic kidney disease; N18.9 Chronic kidney disease, unspecified; M10.9 Gout, unspecified; Z86.73 Personal history of transient ischemic attack (TIA), and cerebral infarction without residual deficits

== ENCOUNTER 2023-02-13 19:11 | Emergency (ER) | payer OTHER ==
[~2023-02-13] VITALS: Ht 167.6 cm; Wt 85.2 kg
[2023-02-13] VITALS (17 sets, daily range): BP systolic 135–221; BP diastolic 78–124
[~2023-02-13 19:11] MED LIST changes: +HUMALOG100 UNIT SC; +LEVEMIR100 UNIT SC
[2023-02-13 19:55] LABS: BASO% 0.6 % (0-3); EOS% 5.4 % (0-8); HEMATOCRIT 42.1 % (39.0-50.0); HEMOGLOBIN 13.2 g/dl (14.0-18.0); IMMATURE GRANULOCYTES 0.1 % (0.0-5.0); LYMPH% 34.2 % (15-41); MEAN CELL VOLUME 70.2 fL CALC (80.0-100.0); MEAN CORPUSCULAR HGB CONC 31.4 g/dL CAL (32.0-36.0); MONO% 8.2 % (2-13); NEUT# 4.37 thou/uL (1.82-7.42); NEUT% 51.5 % (42-76); RED CELL DISTRI WIDTH 17.5 % (11.5-15.5)
[2023-02-13 20:06] LABS: ALBUMIN 4.5 g/dL (3.2-5.0); BILIRUBIN, TOTAL 0.4 mg/dL (0.2-1.3); CREATININE 1.9 mg/dL (0.7-1.3); POTASSIUM 4.5 mmol/l (3.5-5.1); TOTAL PROTEIN 7.9 g/dL (6.3-8.2)
== END 2023-02-13 23:48 | disposition home or self-care (01) ==
LOC: ED 19:11
PROVIDERS: Family Medicine
DX: I16.0 Hypertensive urgency (principal); I12.9 Hypertensive chronic kidney disease with stage 1 through stage 4 chronic kidney disease, or unspecified chronic kidney disease; N18.30 Chronic kidney disease, stage 3 unspecified; T46.5X6A Underdosing of other antihypertensive drugs, initial encounter; Z91.128 Patient's intentional underdosing of medication regimen for other reason; Z86.73 Personal history of transient ischemic attack (TIA), and cerebral infarction without residual deficits

== ENCOUNTER 2023-03-10 17:30 | Observation (INO) | payer OTHER ==
[~2023-03-10] VITALS: Ht 167.6 cm; Wt 85.3 kg
[2023-03-10] VITALS (14 sets, daily range): BP systolic 160–208; BP diastolic 79–109
--- NOTE | 2023-03-10 19:55 | NUR ---
PT CAME IN VIA EMS WITH COMPLIANTS [address] RO. PT IN ROOM 11 FOR TRIAGE AND CARE
[2023-03-10 19:56] LABS: BASO% 0.4 % (0-3); HEMATOCRIT 44.2 % (39.0-50.0); HEMOGLOBIN 13.4 g/dl (14.0-18.0); IMMATURE GRANULOCYTES 0.1 % (0.0-5.0); LYMPH% 30.4 % (15-41); MEAN CORPUSCULAR HGB 21.8 pG CALC (26.0-32.0); MEAN CORPUSCULAR HGB CONC 30.3 g/dL CAL (32.0-36.0); MONO% 7.7 % (2-13); NEUT# 3.94 thou/uL (1.82-7.42); NEUT% 55.4 % (42-76); RED BLOOD COUNT 6.14 mill/uL (4.70-6.10); RED CELL DISTRI WIDTH 17.2 % (11.5-15.5)
[2023-03-10 20:10] LABS: ALBUMIN 4.8 g/dL (3.2-5.0); CREATININE 1.8 mg/dL (0.7-1.3); POTASSIUM 4.4 mmol/l (3.5-5.1); TOTAL PROTEIN 8.9 g/dL (6.3-8.2)
[2023-03-10 20:11] LABS: BILIRUBIN, TOTAL 0.6 mg/dL (0.2-1.3)
--- NOTE | 2023-03-10 22:47 | NUR ---
PT RETURNED FROM CT
--- NOTE | 2023-03-10 23:12 | NUR ---
PT AMBULATED TO ER BATHROOM
[2023-03-11] VITALS (34 sets, daily range): BP systolic 137–201; BP diastolic 78–110
--- NOTE | 2023-03-11 00:24 | NUR ---
CARDENE DRIP STARTED. PT RESTIND IN BED. DENIES PAIN, SOB OR DISCOMFORT. FALL AND SAFETYN PRECAUTIONS IN PLACE.
[2023-03-11 00:34] LABS: URINE BILIRUBIN - DIPSTICK NEGATIVE (NEGATIVE); URINE BLOOD DIPSTICK NEGATIVE (NEGATIVE); URINE COLOR YELLOW; URINE GLUCOSE - DIPSTICK NEGATIVE (NEGATIVE); URINE KETONE NEGATIVE (NEGATIVE); URINE LEUK ESTERASE NEGATIVE (NEGATIVE); URINE NITRITE - DIPSTICK NEGATIVE (Negative); URINE PH 5.5 (4.5-8.0); URINE PROTEIN - DIPSTICK 100 mg/dL (NEG-TRACE); URINE UROBILINOGEN - DIPSTICK 0.2 E.U./dL (0.2)
[2023-03-11 00:42] LABS: URINE BACTERIA FEW hpf; URINE RBC 0-2 RBC/hpf (0-5); URINE SQUAMOUS EPITHELIAL CELL FEW EPI/hpf (0-FEW)
--- NOTE | 2023-03-11 01:46 | NUR ---
RECEIVED BEDSIDE REPORT FROM MICHEL. PT IS RESTING COMFORTABLY
--- NOTE | 2023-03-11 04:12 | NUR ---
PT IS SLEEPING AT THIS TIME. TELLES WHITE WITHIN REACH. PT IS AWARE OF STAYING IN ER UNTIL ER STAFF COMES IN IN THE MORNING.
--- NOTE | 2023-03-11 05:18 | NUR ---
PT'S CARDENE WAS STOPPED AT THIS TIME DUE TO HYPOTENTION.
--- NOTE | 2023-03-11 06:40 | NUR ---
REPORT GIVEN AND CALLED TO ICU BY ER NURSE SUYAPA RN. Reassessment of patient completed. No distress noted. PT AWAKE WATCHING TV, NO COMPLAINTS AT THIS TIME, ADVISED WOULD BE GOING UP STAIRS SHORTLY TO ICU.
--- NOTE | 2023-03-11 07:13 | NUR ---
PT TAKEN TO ICU VIA W/C, VSChin, HAS NO COMPLAINTS AT THIS TIME.
--- NOTE | 2023-03-11 08:00 | NUR ---
PT ARRIVES TO ICU-2 VIA WHEELCHAIR FROM ER, SEEN ALERT AND ORIENTED X 3. PT NEGATIVE ASSESSMENT, STATES THAT HE FEELS GOOD. LUNGS CLEAR, RA. ABDOMEN BENIGN. BP HIGH, MEDS JUST NOW GIVEN.
--- NOTE | 2023-03-11 11:19 | NUR ---
PT CONTINUES BEFORE, AMBULATORY TO BR NEEDED. PT CONTINUES TO FEEL WELL, EXCEPT THAT HE FEELS HIS GOUT IN GREAT TOE HAS WORSENED.
[2023-03-11] MEDS ORDERED: COZAAR100 MG PO (13:06)
[2023-03-11] MEDS ORDERED: ZYLOPRIM100 MG PO (13:09)
--- NOTE | 2023-03-11 13:48 | NUR ---
PT HAS BEEN DISCHARGED FROM [facility] TO HOME. PT VERBALIZES UNDERSTANDING OF DC INSTRUCTIONS, TAKEN BY WHEELCHAIR TO [facility]ENCH OUTSIDE TO WAIT FOR HIS RIDE. PT WITH TWO PRESCRIPTIONS SENT TO [facility]. PT LEAVES [facility] IN STABLE CONDITION.
== END 2023-03-11 13:40 | disposition home or self-care (01) ==
LOC: ED 17:30 → ICU 03-11 05:02
PROVIDERS: Family Medicine; ADMIT Internal Medicine; ATTEND Internal Medicine
DX: I16.0 Hypertensive urgency (principal); I12.9 Hypertensive chronic kidney disease with stage 1 through stage 4 chronic kidney disease, or unspecified chronic kidney disease; E11.22 Type 2 diabetes mellitus with diabetic chronic kidney disease; N18.30 Chronic kidney disease, stage 3 unspecified; J10.1 Influenza due to other identified influenza virus with other respiratory manifestations; M10.9 Gout, unspecified; Z79.4 Long term (current) use of insulin; Z86.73 Personal history of transient ischemic attack (TIA), and cerebral infarction without residual deficits; Z20.822 Contact with and (suspected) exposure to COVID-19
CPT/HCPCS: Q9967

== ENCOUNTER 2023-03-24 14:16 | Emergency (ER) | payer OTHER ==
[2023-03-24] VITALS (8 sets, daily range): BP systolic 115–169; BP diastolic 72–104
[~2023-03-24] VITALS: Ht 167.6 cm; Wt 85.5 kg
[~2023-03-24 14:16] MED LIST changes: +COZAAR100 MG PO
[2023-03-24] MEDS ORDERED: INDOMETHACIN50 MG PO (15:58)
== END 2023-03-24 16:08 | disposition home or self-care (01) ==
LOC: ED 14:16
DX: M10.072 Idiopathic gout, left ankle and foot (principal); I10 Essential (primary) hypertension; Z86.73 Personal history of transient ischemic attack (TIA), and cerebral infarction without residual deficits; T50.4X6A Underdosing of drugs affecting uric acid metabolism, initial encounter; Z91.128 Patient's intentional underdosing of medication regimen for other reason

== ENCOUNTER 2023-04-28 16:48 | Observation (INO) | payer OTHER ==
[~2023-04-28] VITALS: Ht 167.6 cm; Wt 85.0 kg
[2023-04-28] VITALS (28 sets, daily range): BP systolic 119–237; BP diastolic 56–127
[2023-04-28 18:04] LABS: BASO% 0.4 % (0-3); EOS% 4.9 % (0-8); HEMATOCRIT 44.6 % (39.0-50.0); HEMOGLOBIN 13.8 g/dl (14.0-18.0); IMMATURE GRANULOCYTES 0.5 % (0.0-5.0); LYMPH% 33.9 % (15-41); MEAN CELL VOLUME 72.3 fL CALC (80.0-100.0); MEAN CORPUSCULAR HGB 22.4 pG CALC (26.0-32.0); MEAN CORPUSCULAR HGB CONC 30.9 g/dL CAL (32.0-36.0); MONO% 9.5 % (2-13); NEUT# 4.68 thou/uL (1.82-7.42); NEUT% 50.8 % (42-76); RED BLOOD COUNT 6.17 mill/uL (4.70-6.10); RED CELL DISTRI WIDTH 17.6 % (11.5-15.5)
[2023-04-28 18:35] LABS: ALBUMIN 5.2 g/dL (3.2-5.0); BILIRUBIN, TOTAL 0.7 mg/dL (0.2-1.3); TOTAL PROTEIN 9.2 g/dL (6.3-8.2)
[2023-04-28 18:36] LABS: CREATININE 2.9 mg/dL (0.7-1.3); POTASSIUM 5.2 mmol/l (3.5-5.1)
[2023-04-29] VITALS (20 sets, daily range): BP systolic 110–147; BP diastolic 52–93
[2023-04-29 07:51] LABS: CREATININE 2.9 mg/dL (0.7-1.3); POTASSIUM 5.4 mmol/l (3.5-5.1)
[2023-04-29] MEDS ORDERED: NIFEDIPINE ER60 MG PO (09:07)
== END 2023-04-29 09:45 ==
LOC: ED 16:48 → ED-I 19:55 → ED 20:31 → ICU 20:32
PROVIDERS: Family Medicine; ADMIT Internal Medicine; ATTEND Internal Medicine
DX: I16.0 Hypertensive urgency (principal); N17.9 Acute kidney failure, unspecified; I12.9 Hypertensive chronic kidney disease with stage 1 through stage 4 chronic kidney disease, or unspecified chronic kidney disease; E11.22 Type 2 diabetes mellitus with diabetic chronic kidney disease; N18.30 Chronic kidney disease, stage 3 unspecified; M10.9 Gout, unspecified; E66.9 Obesity, unspecified; Z86.73 Personal history of transient ischemic attack (TIA), and cerebral infarction without residual deficits; Z79.4 Long term (current) use of insulin

== ENCOUNTER 2023-04-30 22:16 | Emergency (ER) | payer OTHER ==
[~2023-04-30] VITALS: Ht 170.2 cm; Wt 85.0 kg
[~2023-04-30 22:16] MED LIST changes: +NIFEDIPINE ER60 MG PO
[2023-04-30 23:00] LABS: BASO% 0.3 % (0-3); EOS% 4.1 % (0-8); HEMATOCRIT 39.6 % (39.0-50.0); HEMOGLOBIN 12.4 g/dl (14.0-18.0); IMMATURE GRANULOCYTES 0.2 % (0.0-5.0); LYMPH% 30.8 % (15-41); MEAN CELL VOLUME 72.7 fL CALC (80.0-100.0); MEAN CORPUSCULAR HGB 22.8 pG CALC (26.0-32.0); MEAN CORPUSCULAR HGB CONC 31.3 g/dL CAL (32.0-36.0); MONO% 6.2 % (2-13); NEUT# 5.83 thou/uL (1.82-7.42); NEUT% 58.4 % (42-76); RED BLOOD COUNT 5.45 mill/uL (4.70-6.10); RED CELL DISTRI WIDTH 16.7 % (11.5-15.5)
[2023-04-30 23:19] LABS: ALBUMIN 4.4 g/dL (3.2-5.0); BILIRUBIN, TOTAL 0.5 mg/dL (0.2-1.3); CREATININE 2.3 mg/dL (0.7-1.3); POTASSIUM 4.5 mmol/l (3.5-5.1); TOTAL PROTEIN 7.8 g/dL (6.3-8.2)
[2023-04-30 23:25] LABS: ACT PARTIAL THROMBO TIME 26.7 SECONDS (20.0-32.5); PROTHROMBIN TIME 9.5 SECONDS (9.0-12.5)
[2023-04-30 23:31] VITALS: BP 149/76
[2023-04-30 23:46] VITALS: BP 161/92
[2023-04-30 23:49] VITALS: BP 152/80
== END 2023-05-01 00:01 | disposition home or self-care (01) ==
LOC: ED 22:16
PROVIDERS: Family Medicine
DX: E11.65 Type 2 diabetes mellitus with hyperglycemia (principal); I16.0 Hypertensive urgency; E11.22 Type 2 diabetes mellitus with diabetic chronic kidney disease; I12.9 Hypertensive chronic kidney disease with stage 1 through stage 4 chronic kidney disease, or unspecified chronic kidney disease; N18.30 Chronic kidney disease, stage 3 unspecified; Z79.4 Long term (current) use of insulin; Z86.73 Personal history of transient ischemic attack (TIA), and cerebral infarction without residual deficits

== ENCOUNTER 2023-05-29 16:20 | Observation (INO) | payer OTHER ==
[~2023-05-29] VITALS: Ht 170.2 cm; Wt 93.0 kg
[2023-05-29] VITALS (12 sets, daily range): BP systolic 139–175; BP diastolic 56–98
[2023-05-29 18:17] LABS: BASO% 0.4 % (0-3); EOS% 3.9 % (0-8); HEMATOCRIT 40.8 % (39.0-50.0); IMMATURE GRANULOCYTES 0.2 % (0.0-5.0); LYMPH% 26.3 % (15-41); MEAN CELL VOLUME 71.8 fL CALC (80.0-100.0); MEAN CORPUSCULAR HGB 22.9 pG CALC (26.0-32.0); MEAN CORPUSCULAR HGB CONC 31.9 g/dL CAL (32.0-36.0); MONO% 7.2 % (2-13); NEUT# 5.68 thou/uL (1.82-7.42); RED BLOOD COUNT 5.68 mill/uL (4.70-6.10); RED CELL DISTRI WIDTH 16.2 % (11.5-15.5)
[2023-05-29] MEDS ORDERED: BAYER ASPIRIN E81 MG PO (18:17)
[2023-05-29] MEDS ORDERED: LABETALOL HYDR200 MG (18:18)
[2023-05-29] MEDS ORDERED: ZYLOPRIM100 MG PO (18:18)
[2023-05-29] MEDS ORDERED: NIFEDIPINE60 MG PO (18:18)
[2023-05-29 18:47] LABS: ALBUMIN 4.5 g/dL (3.2-5.0); BILIRUBIN, TOTAL 0.7 mg/dL (0.2-1.3); CHOLESTEROL HDL RATIO 5.7 (<4.4 (CALC)); CREATININE 2.1 mg/dL (0.7-1.3); POTASSIUM 4.1 mmol/l (3.5-5.1); TOTAL PROTEIN 8.5 g/dL (6.3-8.2)
[2023-05-29 18:48] LABS: INTERNATIONAL NORMALIZED RATIO 1.1 RATIO (0.7-1.3); PROTHROMBIN TIME 10.5 SECONDS (9.0-12.5)
[2023-05-30 00:28] VITALS: BP 167/91
[2023-05-30 04:37] VITALS: BP 163/81
[2023-05-30 06:26] LABS: HEMOGLOBIN 12.4 g/dl (14.0-18.0); MEAN CELL VOLUME 72.4 fL CALC (80.0-100.0); MEAN CORPUSCULAR HGB CONC 31.8 g/dL CAL (32.0-36.0); RED BLOOD COUNT 5.39 mill/uL (4.70-6.10); RED CELL DISTRI WIDTH 16.1 % (11.5-15.5)
[2023-05-30 06:43] LABS: CHOLESTEROL HDL RATIO 5.3 (<4.4 (CALC)); CREATININE 1.9 mg/dL (0.7-1.3); MAGNESIUM 1.9 mg/dL (1.6-2.3); POTASSIUM 4.1 mmol/l (3.5-5.1)
[2023-05-30 06:55] VITALS: BP 156/102
[2023-05-30 08:00] VITALS: BP 156/102
[2023-05-30 10:55] VITALS: BP 166/100
[2023-05-30 12:00] VITALS: BP 154/92
[2023-05-30] MEDS ORDERED: ATORVASTATIN CA40 MG PO (12:04)
[2023-05-30] MEDS ORDERED: MECLIZINE 2525 MG PO (12:05)
== END 2023-05-30 13:10 | disposition home or self-care (01) ==
LOC: ED 16:20 → MS2 18:47
PROVIDERS: Family Medicine; ADMIT Student in an Organized Health Care Education/Training Program; ATTEND Student in an Organized Health Care Education/Training Program
DX: R42 Dizziness and giddiness (principal); E11.22 Type 2 diabetes mellitus with diabetic chronic kidney disease; I12.9 Hypertensive chronic kidney disease with stage 1 through stage 4 chronic kidney disease, or unspecified chronic kidney disease; N18.9 Chronic kidney disease, unspecified; M10.9 Gout, unspecified; Z86.73 Personal history of transient ischemic attack (TIA), and cerebral infarction without residual deficits; Z79.4 Long term (current) use of insulin
CPT/HCPCS: G0378; J2060

== ENCOUNTER 2023-06-02 14:37 | Observation (INO) | payer OTHER ==
[~2023-06-02] VITALS: Ht 170.2 cm; Wt 95.2 kg
[2023-06-02] VITALS (22 sets, daily range): BP systolic 122–212; BP diastolic 76–126
[~2023-06-02 14:37] MED LIST changes: +ATORVASTATIN CA40 MG PO; +BAYER ASPIRIN E81 MG PO; +LABETALOL HYDR200 MG; +NIFEDIPINE60 MG PO
[2023-06-02 16:14] LABS: BASO% 0.4 % (0-3); EOS% 4.2 % (0-8); HEMATOCRIT 37.5 % (39.0-50.0); IMMATURE GRANULOCYTES 0.2 % (0.0-5.0); LYMPH% 31.1 % (15-41); MEAN CELL VOLUME 72.7 fL CALC (80.0-100.0); MEAN CORPUSCULAR HGB 23.3 pG CALC (26.0-32.0); MONO% 7.2 % (2-13); NEUT# 4.55 thou/uL (1.82-7.42); NEUT% 56.9 % (42-76); RED BLOOD COUNT 5.16 mill/uL (4.70-6.10); RED CELL DISTRI WIDTH 16.2 % (11.5-15.5)
[2023-06-02 16:23] LABS: ALBUMIN 4.3 g/dL (3.2-5.0); BILIRUBIN, TOTAL 0.5 mg/dL (0.2-1.3); CREATININE 1.9 mg/dL (0.7-1.3); POTASSIUM 4.4 mmol/l (3.5-5.1); TOTAL PROTEIN 7.5 g/dL (6.3-8.2)
[2023-06-03 04:00] VITALS: BP 152/92
[2023-06-03 06:07] LABS: BASO% 0.5 % (0-3); EOS% 3.8 % (0-8); HEMATOCRIT 36.1 % (39.0-50.0); HEMOGLOBIN 11.5 g/dl (14.0-18.0); IMMATURE GRANULOCYTES 0.1 % (0.0-5.0); LYMPH% 34.4 % (15-41); MEAN CELL VOLUME 72.5 fL CALC (80.0-100.0); MEAN CORPUSCULAR HGB 23.1 pG CALC (26.0-32.0); MEAN CORPUSCULAR HGB CONC 31.9 g/dL CAL (32.0-36.0); MONO% 8.1 % (2-13); NEUT# 4.25 thou/uL (1.82-7.42); NEUT% 53.1 % (42-76); RED BLOOD COUNT 4.98 mill/uL (4.70-6.10); RED CELL DISTRI WIDTH 16.5 % (11.5-15.5)
[2023-06-03 06:39] LABS: ALBUMIN 3.9 g/dL (3.2-5.0); BILIRUBIN, TOTAL 0.6 mg/dL (0.2-1.3); MAGNESIUM 1.8 mg/dL (1.6-2.3); POTASSIUM 4.2 mmol/l (3.5-5.1)
[2023-06-03 06:42] VITALS: BP 143/74
[2023-06-03 10:18] VITALS: BP 129/77
[2023-06-03] MEDS ORDERED: ALDACTONE25 MG PO (10:40)
[2023-06-03] MEDS ORDERED: HYDRALAZINE50 MG PO (10:41)
[2023-06-03 15:35] VITALS: BP 163/77
== END 2023-06-03 16:00 | disposition home or self-care (01) ==
LOC: ED 14:37 → ED-I 18:00 → ED 18:10 → MS2 18:11
PROVIDERS: Family Medicine; ADMIT Student in an Organized Health Care Education/Training Program; ATTEND Student in an Organized Health Care Education/Training Program
DX: I16.1 Hypertensive emergency (principal); I67.4 Hypertensive encephalopathy; I12.9 Hypertensive chronic kidney disease with stage 1 through stage 4 chronic kidney disease, or unspecified chronic kidney disease; E11.22 Type 2 diabetes mellitus with diabetic chronic kidney disease; N18.30 Chronic kidney disease, stage 3 unspecified; M10.9 Gout, unspecified; Z79.4 Long term (current) use of insulin; Z86.73 Personal history of transient ischemic attack (TIA), and cerebral infarction without residual deficits
CPT/HCPCS: G0378

== ENCOUNTER 2023-06-20 12:52 | Emergency (ER) | payer OTHER ==
[2023-06-20] VITALS (10 sets, daily range): BP systolic 132–169; BP diastolic 74–97
[~2023-06-20] VITALS: Ht 170.2 cm; Wt 95.0 kg
[~2023-06-20 12:52] MED LIST changes: +ALDACTONE25 MG PO
[2023-06-20 13:21] LABS: BASO% 0.8 % (0-3); EOS% 6.5 % (0-8); HEMATOCRIT 40.7 % (39.0-50.0); HEMOGLOBIN 12.8 g/dl (14.0-18.0); IMMATURE GRANULOCYTES 0.1 % (0.0-5.0); LYMPH% 29.5 % (15-41); MEAN CELL VOLUME 72.2 fL CALC (80.0-100.0); MEAN CORPUSCULAR HGB 22.7 pG CALC (26.0-32.0); MEAN CORPUSCULAR HGB CONC 31.4 g/dL CAL (32.0-36.0); MONO% 6.9 % (2-13); NEUT# 4.25 thou/uL (1.82-7.42); NEUT% 56.2 % (42-76); RED BLOOD COUNT 5.64 mill/uL (4.70-6.10); RED CELL DISTRI WIDTH 15.8 % (11.5-15.5)
[2023-06-20 13:50] LABS: ALBUMIN 4.6 g/dL (3.2-5.0); ALKALINE PHOSPHATASE 98 u/l (38-126); ANION GAP 14 (6-22 (CALC)); BILIRUBIN, TOTAL 0.7 mg/dL (0.2-1.3); BUN 18 mg/dL (9-20); BUN/CREATININE RATIO 8 (12-20 (CALC)); CARBON DIOXIDE 23 mmol/l (22-30); CHLORIDE 108 mmol/l (95-108); CREATININE 2.1 mg/dL (0.7-1.3); GFR FOR AFR.AMER. 41 ML/MIN (>=60 (CALC)); GFR OTHER RACES 34 ML/MIN (>=60 (CALC)); POTASSIUM 4.5 mmol/l (3.5-5.1); SGOT/AST 28 u/l (17-59); SODIUM 140 mmol/l (137-146)
[2023-06-20 13:51] LABS: TOTAL PROTEIN 8.6 g/dL (6.3-8.2)
== END 2023-06-20 15:27 | disposition home or self-care (01) ==
LOC: ED 12:52
PROVIDERS: Family Medicine
DX: I10 Essential (primary) hypertension (principal); E11.9 Type 2 diabetes mellitus without complications; E66.9 Obesity, unspecified; Z86.73 Personal history of transient ischemic attack (TIA), and cerebral infarction without residual deficits; Z79.4 Long term (current) use of insulin

== ENCOUNTER 2023-07-07 18:14 | Emergency (ER) | payer OTHER ==
[~2023-07-07] VITALS: Ht 170.2 cm; Wt 90.7 kg
[2023-07-07 18:29] VITALS: BP 176/97
[2023-07-07] MEDS ORDERED: INDOMETHACIN50 MG PO (18:37)
[2023-07-07 18:46] VITALS: BP 185/102
[2023-07-07 18:55] VITALS: BP 195/107
[2023-07-07 18:56] VITALS: BP 181/99
[2023-07-07 18:58] VITALS: BP 181/99
== END 2023-07-07 18:59 | disposition home or self-care (01) | DRG 554 ==
LOC: ED 18:14
DX: M10.071 Idiopathic gout, right ankle and foot (principal); I10 Essential (primary) hypertension; E11.9 Type 2 diabetes mellitus without complications; T46.5X6A Underdosing of other antihypertensive drugs, initial encounter; Z91.128 Patient's intentional underdosing of medication regimen for other reason; Z86.73 Personal history of transient ischemic attack (TIA), and cerebral infarction without residual deficits; Z79.4 Long term (current) use of insulin

== ENCOUNTER 2023-09-22 13:27 | Emergency (ER) | payer OTHER ==
[~2023-09-22] VITALS: Ht 170.2 cm; Wt 90.9 kg
[~2023-09-22 13:27] MED LIST changes: +COZAAR25 MG PO; +HYDRALAZINE HYD25 MG PO; -LABETALOL HYDR200 MG; +LABETALOL HYDR200 MG PO; +NORVASC10 M1 PO
[2023-09-22 15:21] VITALS: BP 195/110
[2023-09-22 15:31] VITALS: BP 169/92
[2023-09-22 16:01] VITALS: BP 181/90
[2023-09-22 17:01] VITALS: BP 160/87
[2023-09-22] MEDS ORDERED: TAM75CAP PO (17:21)
[2023-09-22 17:51] VITALS: BP 160/87
== END 2023-09-22 17:55 | disposition home or self-care (01) | DRG 195 ==
LOC: ED 13:27
DX: J10.1 Influenza due to other identified influenza virus with other respiratory manifestations (principal)

== ENCOUNTER 2023-10-04 11:28 | Inpatient (IN) | payer OTHER ==
[2023-10-04] VITALS (38 sets, daily range): BP systolic 144–225; BP diastolic 73–135
[~2023-10-04] VITALS: Ht 170.2 cm; Wt 92.0 kg
--- NOTE | 2023-10-04 11:30 | NUR ---
PATIENT C/O CP OF A SHARP CONSTANT PAIN THAT DOES NOT RADIATE. DENIES SOB. PATIENT AMBULATED TO ROOM W/O ISSUES. CONNECTED TO MONITOR. REPORT GIVEN TO NURSE.
[2023-10-04 12:23] LABS: BASO% 0.5 % (0-3); EOS% 6.2 % (0-8); HEMATOCRIT 40.6 % (39.0-50.0); HEMOGLOBIN 12.4 g/dl (14.0-18.0); IMMATURE GRANULOCYTES 0.2 % (0.0-5.0); LYMPH% 24.8 % (15-41); MEAN CELL VOLUME 73.3 fL CALC (80.0-100.0); MEAN CORPUSCULAR HGB 22.4 pG CALC (26.0-32.0); MEAN CORPUSCULAR HGB CONC 30.5 g/dL CAL (32.0-36.0); MONO% 7.3 % (2-13); NEUT# 4.03 thou/uL (1.82-7.42); RED BLOOD COUNT 5.54 mill/uL (4.70-6.10); RED CELL DISTRI WIDTH 15.2 % (11.5-15.5)
--- NOTE | 2023-10-04 15:16 | NUR ---
pt bp is controlled, pt able to ambulate to bathroom, no apparent distress.
[2023-10-04 16:15] LABS: ALBUMIN 4.6 g/dL (3.2-5.0); BILIRUBIN, TOTAL 0.5 mg/dL (0.2-1.3); CREATININE 1.8 mg/dL (0.7-1.3); POTASSIUM 4.1 mmol/l (3.5-5.1); TOTAL PROTEIN 8.2 g/dL (6.3-8.2)
--- NOTE | 2023-10-04 16:41 | NUR ---
pt awake alert and oriented, bp still increased 187/102 nitro increased to 10 mcg/min
--- NOTE | 2023-10-04 17:55 | NUR ---
pt bp still elevated, increased nitro to 15
--- NOTE | 2023-10-04 19:00 | NUR ---
REPORT RECIEVED FROM AUDREY POOL AT THIS TIME, PATIENT ALERT AND ORIENTATEDX4, VOICES NO C/O PAIN AT THIS TIME, B/P RECONNECTED FOR MONITORING, GTT RUNNING WITH IVF, PATIENT UPDATED ON CONTINUOUS PLAN OF CARE WITH NO FURTHER QUESTIONS OR CONCERNS AT THIS TIME, PATIENT LIGHTS DIMMED FOR COMFORT AND BLANKET APPLIED.
--- NOTE | 2023-10-04 20:35 | NUR ---
REPORT CALLED TO MAYE IN ICU AT THIS TIME, PATIENT AWAITING TRANSPORT UPSTAIRS AT THIS TIME.
[2023-10-04 20:48] LABS: URINE BILIRUBIN - DIPSTICK Negative (NEGATIVE); URINE BLOOD DIPSTICK Negative (NEGATIVE); URINE GLUCOSE - DIPSTICK Negative (NEGATIVE); URINE KETONE Negative (NEGATIVE); URINE LEUK ESTERASE Negative (NEGATIVE); URINE NITRITE - DIPSTICK Negative (Negative); URINE PH 5.5 (4.5-8.0); URINE PROTEIN - DIPSTICK >=300 mg/dL (NEG-TRACE); URINE SPECIFIC GRAVITY 1.025; URINE UROBILINOGEN - DIPSTICK 0.2 E.U./dL (0.2)
[2023-10-04 20:49] LABS: URINE COLOR Yellow
[2023-10-04 20:50] LABS: URINE RBC 0-2 RBC/hpf (0-5); URINE WBC 0-2 WBC/hpf (0-5)
--- NOTE | 2023-10-04 20:58 | NUR ---
PATIENT TRANSPORTED TO ICU AT THIS TIME VIA STRETCHER, PATIENT AMB TO BED WITH STEADY GAIT, NURSE/LEAD VULCANIZING OPERATOR AWARE OF BEDSIDE. NITRO GTT VERIFIED, PATIENT VOICES APPRECIATION OF CARE.
--- NOTE | 2023-10-04 21:00 | NUR ---
48 yr old black male admitted icu6 per stretcher from er. transferred self to bed. bed weight obtained. cardiac tech shows sinus rhythm. ivf infusing well per lac site. saline lock rac. history obtained per pt, er record & old record. oriented to room.fall precaution initiated.
--- NOTE | 2023-10-04 22:25 | NUR ---
lab here. blood drawn.
[2023-10-05] VITALS (16 sets, daily range): BP systolic 133–167; BP diastolic 58–89
--- NOTE | 2023-10-05 00:01 | NUR ---
eyes closed. no distress. cardiac rehabilitation specialist shows sinus rhythm.
--- NOTE | 2023-10-05 02:00 | NUR ---
eyes closed. no distress. supervisor cigarette making department shows sinus rhythm.
--- NOTE | 2023-10-05 04:34 | NUR ---
lab here. blood drawn.
[2023-10-05 04:45] LABS: HEMATOCRIT 36.8 % (39.0-50.0); HEMOGLOBIN 11.4 g/dl (14.0-18.0); MEAN CELL VOLUME 72.7 fL CALC (80.0-100.0); MEAN CORPUSCULAR HGB 22.5 pG CALC (26.0-32.0); RED BLOOD COUNT 5.06 mill/uL (4.70-6.10)
[2023-10-05 05:10] LABS: BILIRUBIN, TOTAL 0.6 mg/dL (0.2-1.3); CREATININE 1.7 mg/dL (0.7-1.3); MAGNESIUM 1.6 mg/dL (1.6-2.3); POTASSIUM 3.9 mmol/l (3.5-5.1); TOTAL PROTEIN 7.2 g/dL (6.3-8.2)
--- NOTE | 2023-10-05 06:00 | NUR ---
awake. denies distress. monitoring analyst shows sinus rhythm.
--- NOTE | 2023-10-05 07:36 | NUR ---
REPORT RECIEVED FROM NIGHT RN. PT IS ADMITTED FOR HYPERTENSIVE CRISIS. PT CURRENTLY ON NITRO GTT AT 9 MCG. CURRENT BP 142/72. PT IS A/O. LUNGS CLEAR. PT IS ON RA. NON-PRODUCTIVE COUGH NOTED. HEART SOUNDS S1S2. PT IS NSR ON MONITOR. BOWEL SOUNDS ACTIVE. PT DENIES ANY ABDOMINAL TENDERNESS. PULSES STRONG ALL EXTREMETIES. SKIN W/D/I. NO EDEMA NOTED. PT DENIES ANY PAIN OR NEEDS AT THIS TIME. PT GIVEN BREAKFAST AND IS SITTING AT EDGE OF BED EATING.
--- NOTE | 2023-10-05 10:00 | NUR ---
PT SITTING AT EDGE OF BED. NITRO GTT INFUSING TO MAINTAIN DESIRED BP. DR. BILLY AT BEDSIDE TO ASSESS PT. VSS AT THIS TIME.
--- NOTE | 2023-10-05 11:27 | NUR ---
PT CALLED RN INTO ROOM AND STATED HE WANTED TO LEAVE AND HAD A RIDE WAITING FOR HIM DOWNSTAIRS. PT EDUCATED ON THE NEED TO STAY IN THE HOSPITAL TO RECIEVE MEDICATION TO CONTROL BP. PT VERBALIZED UNDERSTANDING BUT STATED HE WANTED TO LEAVE ANYWAY AND THAT HE WOULD SIGN THE NECESSARY FORM. PT IS ORIENTED AND AMBULATORY. DR. BILLY NOTIFIED. IV'S REMOVED. PT SIGNED AMA FORM. PT AMBULATED FROM ICU INDEPENDENTLY AND WITH ALL BELONGINGS.
== END 2023-10-05 11:27 | disposition left against medical advice (07) | DRG 305 ==
LOC: ED 11:28 → ED-I 14:21 → ED 14:44 → ICU 14:45
PROVIDERS: Emergency Medicine; ADMIT Student in an Organized Health Care Education/Training Program; ATTEND Student in an Organized Health Care Education/Training Program
DX: I16.1 Hypertensive emergency (principal); I10 Essential (primary) hypertension; E11.9 Type 2 diabetes mellitus without complications; Z86.73 Personal history of transient ischemic attack (TIA), and cerebral infarction without residual deficits; Z79.4 Long term (current) use of insulin

== ENCOUNTER 2023-10-05 11:58 | Emergency (ER) | payer OTHER ==
[~2023-10-05] VITALS: Ht 170.2 cm; Wt 90.7 kg
[2023-10-05] VITALS (8 sets, daily range): BP systolic 143–156; BP diastolic 75–90
[2023-10-05 12:38] LABS: ANION GAP 16 (6-22 (CALC)); BUN 14 mg/dL (9-20); BUN/CREATININE RATIO 8 (12-20 (CALC)); CARBON DIOXIDE 20 mmol/l (22-30); CHLORIDE 107 mmol/l (95-108); CREATININE 1.8 mg/dL (0.7-1.3); GFR FOR AFR.AMER. 49 ML/MIN (>=60 (CALC)); GFR OTHER RACES 41 ML/MIN (>=60 (CALC)); POTASSIUM 4.3 mmol/l (3.5-5.1); SODIUM 139 mmol/l (137-146)
== END 2023-10-05 13:45 | disposition home or self-care (01) | DRG 948 ==
LOC: ED 11:58
PROVIDERS: Emergency Medicine
DX: R53.1 Weakness (principal); I10 Essential (primary) hypertension; E11.9 Type 2 diabetes mellitus without complications; E66.9 Obesity, unspecified; Z86.73 Personal history of transient ischemic attack (TIA), and cerebral infarction without residual deficits; Z79.4 Long term (current) use of insulin

== ENCOUNTER 2023-10-05 16:15 | Inpatient (IN) | payer OTHER ==
[~2023-10-05] VITALS: Ht 170.2 cm; Wt 89.8 kg
--- NOTE | 2023-10-05 16:26 | NUR ---
PATIENT IN ROOM 6. DR. PIZARRO AT THE BEDSIDE TO ASSESS.
--- NOTE | 2023-10-05 16:27 | NUR ---
RN PUT A PSYCHIATRIC CONSULT IN ON THE PATIENT. PT THINK"HE IS HAVING A STROKE EVERYDAY.HE ALWAYS SAYS IT FEELS LIKE HIS FIRST STROKE" PT IS SOMETIMES HERE 3 TIMES IN ONE DAY TO THE ER. RN DOES NOT FEEL LIKE HE IS UNDERSTANDING OR DEALING WITH HIS PREVIOUS DIAGNOSIS OF HAVING A STROKE.
[2023-10-05 16:44] LABS: BASO% 0.2 % (0-3); EOS% 2.6 % (0-8); HEMATOCRIT 36.1 % (39.0-50.0); HEMOGLOBIN 11.5 g/dl (14.0-18.0); IMMATURE GRANULOCYTES 0.1 % (0.0-5.0); LYMPH% 17.8 % (15-41); MEAN CELL VOLUME 72.3 fL CALC (80.0-100.0); MEAN CORPUSCULAR HGB CONC 31.9 g/dL CAL (32.0-36.0); MONO% 9.2 % (2-13); NEUT# 6.1 thou/uL (1.82-7.42); NEUT% 70.1 % (42-76); RED BLOOD COUNT 4.99 mill/uL (4.70-6.10); RED CELL DISTRI WIDTH 15.1 % (11.5-15.5)
[2023-10-05 16:55] LABS: ALBUMIN 4.4 g/dL (3.2-5.0); TOTAL PROTEIN 7.8 g/dL (6.3-8.2)
[2023-10-05 16:56] LABS: BILIRUBIN, TOTAL 0.9 mg/dL (0.2-1.3)
--- NOTE | 2023-10-05 17:46 | NUR ---
PT ADVISED OF CONTINUED WAIT TIMES. PT VERBALIZED UNDERSTANDING.
--- NOTE | 2023-10-05 18:20 | NUR ---
PT TO CT AT THIS TIME.
--- NOTE | 2023-10-05 18:39 | NUR ---
PT RETURNED FROM CT. PT PLACED IN ROOM ON MONITOR.
--- NOTE | 2023-10-05 18:56 | NUR ---
HAND OFF REPORT RECEIVED FROM MRINA
--- NOTE | 2023-10-05 19:37 | NUR ---
RESTING QUIETLY, NO C/O PAIN OR DISCOMFORT, NO S/S OF DISTRESS NOTED, RESFUSING VITAL MONITORING AT THIS TIME.
--- NOTE | 2023-10-05 20:51 | NUR ---
PATIENT ADMITTED BY DR BILLY, AWAITING BED ASSIGNMENT
--- NOTE | 2023-10-05 20:54 | NUR ---
PATIENT ASSIGNED INPATIENT ROOM 279
[2023-10-05 21:08] VITALS: BP 172/95
--- NOTE | 2023-10-05 21:08 | NUR ---
PATIENT TAKEN TO ROOM 279 FOR INPATIENT TREATMENT BY WHEELCHAIR, PATIENT AWAKE AND ALERT, NO C/O PAIN OR DISCOMFORT, NO S/S OF IDSTRESS NOTED, AMBULATORY WITHOUT ASSISTANCE WITH A STEADY GAIT.
--- NOTE | 2023-10-05 21:55 | NUR ---
PATIENT ADMITTED FROM ER VIA WHEELCHAIR WITH ER STAFF IN ATTENDANCE. PATIENT IS ABLE TO STAND AT DTANDING SCALE-WEGHT IS 89.8. ABLE TO AMBULATE TO THE BED. ALERT AND ORIENTEDX3. PATIENT STATES THAT HE WAS IN ICU LAST NIGHT FOR CHEST PAIN AND LEFT THIS MORNING AMA-GOT HOME AND STARTED FEELING DIZZY AND LIGHTHEADED AND DAUGHTER CALLED EMS AGAIN AND WAS WAS BROUGHT TO THE ER. SO FAR TESTING IN NEG-TO GET MRI. GLUCOSE WAS 118. NO COVERAGE NEEDED. NIH IS 0. NO NEURO DEFICITS AT THIS TIME. DENIES ANY PAIN OR DIZZINESS AT THIS TIME. LUNGS ARE CLEAR. ABD IS SOFT WITH ACTIVE BS. LAST BM WAS TODAY. DENIES ANY DIFFICULTY WITH URINATION. NO PERIPHERAL EDEMA NOTED. PULSES ARE PALPABLE. ORIENTED TO ROOM AND SURROUNDINGS. INSTRUCTED ON USE OF NURSE CALL LIGHT SYSTEM AND TV REMOTE. SAFETY PRECAUTIONS REINFORCED. CALL LIGHT IN REACH. WILL CONT TO MONITOR.
[2023-10-05 22:20] VITALS: BP 156/85
[2023-10-05 22:25] VITALS: BP 172/90
[2023-10-05 22:30] VITALS: BP 157/87
[2023-10-06] VITALS (13 sets, daily range): BP systolic 132–195; BP diastolic 62–119
--- NOTE | 2023-10-06 | NUR ---
PATIENT RESTING IN BED WITH EYES CLOSED AND RESPS ARE EVEN AND UNLABORED. TELE MONITOR IN PLACE WITH LAST READING SR-75. SALINE LOCK INTACT TO LEFT FOREARM. CALL LIGHT IN REACH. WILL CONT TO MONITOR.
--- NOTE | 2023-10-06 03:25 | NUR ---
PATIENT RESTING IN BED WITH EYES CLOSED. RESPS ARE EVEN AND UNLABORED. TELE MONTIOR IN PLACE. IV SITE TO LEFT FOREARM INTACT. CALL LIGHT IN REACH. WILL CONT TO MONITOR.
--- NOTE | 2023-10-06 05:00 | NUR ---
RESTING IN BED-EYES CLOSED AND RESPS ARE EVEN AND UNLABORED. TELE MONITOR IN PLACE-LAST READING WAS SR-69. CALL LIGHT IN REACH. WILL CONT TO MONITOR.
[2023-10-06 05:19] LABS: BASO% 0.4 % (0-3); HEMATOCRIT 36.8 % (39.0-50.0); HEMOGLOBIN 11.7 g/dl (14.0-18.0); IMMATURE GRANULOCYTES 0.1 % (0.0-5.0); LYMPH% 22.4 % (15-41); MEAN CORPUSCULAR HGB 22.9 pG CALC (26.0-32.0); MEAN CORPUSCULAR HGB CONC 31.8 g/dL CAL (32.0-36.0); MONO% 10.4 % (2-13); NEUT# 5.06 thou/uL (1.82-7.42); NEUT% 62.7 % (42-76); RED BLOOD COUNT 5.11 mill/uL (4.70-6.10); RED CELL DISTRI WIDTH 14.9 % (11.5-15.5)
[2023-10-06 05:43] LABS: ALBUMIN 3.9 g/dL (3.2-5.0); BILIRUBIN, TOTAL 0.9 mg/dL (0.2-1.3); CREATININE 1.7 mg/dL (0.7-1.3); MAGNESIUM 1.6 mg/dL (1.6-2.3); POTASSIUM 3.9 mmol/l (3.5-5.1); TOTAL PROTEIN 6.9 g/dL (6.3-8.2)
--- NOTE | 2023-10-06 08:00 | NUR ---
SHFT CHANGE REPORT, PT AWAKE ALERT AND ORIENTED RESTING IN BED.NO C/O DISCOMFORT AT THIS TIME, TELE MONITOR IN PLACE, CALL WHITE IN REACH AND BED LOCKED IN LOWEST POSITION.
--- NOTE | 2023-10-06 08:34 | NUR ---
NEUROLOGIST CONSULTED VIRTUALLY AND WILL WRITE RECOMMENDATIONS.
--- NOTE | 2023-10-06 16:38 | NUR ---
patient glucose level is 63, nurse notified. nurse gave orange juice, and ice cream.per patient request.
--- NOTE | 2023-10-06 20:00 | NUR ---
PATIENT RESTING IN BED WATCHING TV-AWAKE ALERT AND ORIENTEDX3. PATIENT WITH NO COMPLAINTS AT THIS TIME. TELE MONITOR IN PLACE WITH LAST READING SR-71. SALINE LOCK TO LEFT FOREARM INTACT AND HEALTHY WITH GOOD BLOOD RETURN WHEN FLUSHED. LUNGS ARE CLEAR. ABD SOFT WITH ACTIVE BS. HAD BM TODAY. NO PERIPHERAL EDEMA NOTED. DR. BILLY UPDATED WITH MRI RESULTS. ALREADY SAW THEM. CLARIFIED WITH DR. BILLY ORDER FOR APRESOLINE PRN FOR SBP>220/120. ALLOWING FOR PERMISSIVE HTN FOR CVA PROTOCOL. INFORMED THAT PATIENT IS RUNNING ELEVATED BP. WILL MEDICATE PER ORDER PROTOCOL. PATIENT WITH NO COMPLAINTS AT THIS TIME. NIH IS 0 AT THIS TIME. PATIENT UP TO THE BR TO VOID. SLIGHTLY UNSTEADY ON HIS FEET. SAFETY PRECAUTIONS REINFORCED. CALL LIGHT IN REACH. WILL CONT TO MONITOR.
--- NOTE | 2023-10-06 22:00 | NUR ---
ORTHOSTATIC VS TAKEN AND RECORDED-NO SIGNIFICANT CHANGES OTHER THAN THE BP CONT TO BE ELEVATED. STILL BELOW LEVEL FOR APRESOLINE PRN. CONT TO WATCH TV WITH NO COMPLAINTS. GLUCOSE TONIGHT WAS 123-NO COVERAGE REQUIRED. MEDICATED WITH LIPITOR AND HEPARIN SQ MEDICATED. PROVIDED WITH HS SNACK. CALL LIGHT IN REACH. WILL CONT TO MONITOR.
[2023-10-07] VITALS (9 sets, daily range): BP systolic 175–215; BP diastolic 86–110
--- NOTE | 2023-10-07 | NUR ---
PATIENT RESTING IN WITH EYES CLOSED. RESPS ARE EVEN AND UNLABORED. TELE MONITOR IN PLACE. SALINE LOCK TO LEFT FOREARM INTACT. CALL LIGHT IN REACH., WILL CONT TO MONITIOR.
--- NOTE | 2023-10-07 04:57 | NUR ---
PATIENT RESTING IN BED WITH EYES CLOSED. RESPS ARE EVEN AND UNLABORED. TELE MONITOR IN PLACE. CALL LIGHT IN REACH. WILL CONT TO MONITOR.
[2023-10-07 06:23] LABS: BASO% 0.4 % (0-3); EOS% 5.1 % (0-8); HEMATOCRIT 36.8 % (39.0-50.0); HEMOGLOBIN 11.5 g/dl (14.0-18.0); IMMATURE GRANULOCYTES 0.1 % (0.0-5.0); LYMPH% 26.8 % (15-41); MEAN CELL VOLUME 72.2 fL CALC (80.0-100.0); MEAN CORPUSCULAR HGB 22.5 pG CALC (26.0-32.0); MEAN CORPUSCULAR HGB CONC 31.3 g/dL CAL (32.0-36.0); MONO% 9.9 % (2-13); NEUT# 4.32 thou/uL (1.82-7.42); NEUT% 57.7 % (42-76); RED BLOOD COUNT 5.1 mill/uL (4.70-6.10); RED CELL DISTRI WIDTH 14.8 % (11.5-15.5)
[2023-10-07 06:34] LABS: ALBUMIN 3.6 g/dL (3.2-5.0); CREATININE 1.9 mg/dL (0.7-1.3); MAGNESIUM 1.8 mg/dL (1.6-2.3)
[2023-10-07 06:37] LABS: BILIRUBIN, TOTAL 0.5 mg/dL (0.2-1.3); CHOLESTEROL HDL RATIO 2.8 (<4.4 (CALC))
--- NOTE | 2023-10-07 07:00 | NUR ---
BEDSIDE REPORT RECEIVED FROM AUDREY HOFFMAN. PT RESTING IN BED WITH EYES CLOSED. NO NEEDS AT THIS TIME. VSS. ALL SAFETY MEASURES IN PLACE AND FUNCTIONING. IV FLUIDS RUNNING PER MD ORDER. ORDER FOR PERMISSIVE HYPERTENSION IN PLACE, IV FLUIDS HAVE BEEN STOPPED TO PREVENT EXACERBATING BP.
--- NOTE | 2023-10-07 17:46 | NUR ---
PT SEEN BY TELENEUROLOGY. STATED HE WILL ORDER LABS. ALSO STATED THAT PT MAY DC HOME IF ECHO RESULTS ARE NEGATIVE.
--- NOTE | 2023-10-07 20:00 | NUR ---
PATIENT RESTING IN BED WATCHING TV. PATIENT CONT TO HAVE ELEVATED BP-204/100 LAST READING-MEDICATED WITH NIFEDIPINE ORDERED. PATIENT ALERT ANBD ORIENTEDX3. PATIENT VERBALIZES CONCERNS REGUARDING HIS CURRENT HEALTH ISSUES. REINFORCED TO THE PATIENT THE NEED TO BE COMPLIANT WITH POC IN THE FUTURE AND F/UP WITH DOCTORS RECOMMENDED. VERBALIZES UNDERSTANDING. SALINE LOCK TO LEFT FOREARM REMAINS INTACT AND HEALTHY WITH GOOD BLOOD RETURN WHEN FLUSHED. TELE MONITOR IN PLACE-LAST READING WAS SR-71. LUNGS ARE CLEAR. ABD IS SOFT WITH ACTIVE BS. STATES ATHE HE DID HAVE BM TODAY. DENIES ANY DIFFICULTY WITH URINATION. NO PERIPHERAL EDEMA NOTED. CALL LIGHT IN REACH. WILL CONT TO MONITOR.
--- NOTE | 2023-10-07 21:00 | NUR ---
WATCHING TV-GLUCOSE TONIGHT WAS 74-PROVIDED WITH HS SNACK. C/O HEADACHE AND MEDICATED WITH TYLENOL 650MG PO. BP IS COMING DOWN-175/86. CALL LIGHT IN REACH. WILL CONT TO MONITOR.
[2023-10-08] VITALS (24 sets, daily range): BP systolic 123–200; BP diastolic 67–113
--- NOTE | 2023-10-08 01:06 | NUR ---
PATIENT RESTING IN BED-EYES CLOSED. BP CONT TO DROP-138/72 LAST REAEDING. EYES CLOSED. RESPS ARE EVEN AND UNLABORED. TELE MONITOR IN PLACE. CALL LIGHT IN REACH. WILL CONT TO MONITOR.
--- NOTE | 2023-10-08 03:31 | NUR ---
PRODUCT PROMOTER SALES PERSON TO BEDSIDE TO ASSIST PT WHO WAS ATTEMPTING TO STAND...PT ALMOST FELL BECAUSE HE HAD DECREASED STRENGTH IN LEFT LEG. RN YASMIN Montes SUMMOUNDED AND EVALUATED PT AND FOUND PT TO HAVE WEAKNESS IN LEFT ARM AND LEG. STROKE ALERT WAS CALLED. BS COMPLETED FOR 84. TO RADIOLOGY VIA BED WITH NURSE/PRODUCT PROMOTER SALES PERSON.
--- NOTE | 2023-10-08 03:46 | NUR ---
CT COMPLETED. DR. WEEKS ON TELESTROKE FOR EXAM. PT ALERT/ORIENTED/COGNITIVE. LEFT FACIAL DROOP/LEFT ARM WEAKNESS/LEFT LEG WEAKNESS. NIH COMPLETED. RADIOLOGY CALLED TO ADVISED OF GFR 46/CREAT 1.9. PER RADIOLOGY..GIVE 1/2 DOSE FOR CTA AND GIVE 1000 CC FLUIDS. CTA TO BE COMPLETED.
--- NOTE | 2023-10-08 04:54 | NUR ---
PATIENT ARRIVED FROM MED SURG VIA BED ACCOMPANIED BY Chin ZENDEJAS RN AND Sebastian ALVARADO CNA. NIHSS COMPLETED AT BEDSIDE WITH Chin ZENDEJAS RN. NIH NEGATIVE AT THIS TIME. PATIENT PALCED ON MONITOR, ORIENTED TO ROOM AND CALL SYSTEM.
--- NOTE | 2023-10-08 06:54 | NUR ---
PATIENT RESTING IN BED, NAD. CALL LIGHT AND BEDSIDE TABLE WITHIN REACH.
[2023-10-08 07:10] LABS: BASO% 0.4 % (0-3); EOS% 5.3 % (0-8); HEMATOCRIT 33.9 % (39.0-50.0); HEMOGLOBIN 10.8 g/dl (14.0-18.0); IMMATURE GRANULOCYTES 0.1 % (0.0-5.0); LYMPH% 23.1 % (15-41); MEAN CELL VOLUME 72.1 fL CALC (80.0-100.0); MEAN CORPUSCULAR HGB CONC 31.9 g/dL CAL (32.0-36.0); MONO% 7.6 % (2-13); NEUT# 4.87 thou/uL (1.82-7.42); NEUT% 63.5 % (42-76); RED BLOOD COUNT 4.7 mill/uL (4.70-6.10); RED CELL DISTRI WIDTH 14.9 % (11.5-15.5)
[2023-10-08 07:43] LABS: ALBUMIN 3.9 g/dL (3.2-5.0); BILIRUBIN, TOTAL 0.5 mg/dL (0.2-1.3); CREATININE 1.8 mg/dL (0.7-1.3); MAGNESIUM 1.7 mg/dL (1.6-2.3)
--- NOTE | 2023-10-08 20:00 | NUR ---
RECEIVED REPORT FROM NURSE MELO, PATIENT SPEECH CLEAR, ALERT ORIENTED ABLE TO FOLLOW COMMAND, PATIENT AMBULATORY, PATIENT NIH 0, IV ON RAC G 20 NS AT 100CC/HR INFUSING WELL, ONGOING MAGNESIUM INFUSION, SALINE LOCK NOTED ON LEFT WRIST, PATIENT SKIN INTACT, DENIES PAIN AT THIS TIME, BREATHING EVEN UNLABORED, NO DISCOMFORTS NOTED AT THIS TIME, CALL LIGHT IN REACH.
--- NOTE | 2023-10-08 22:00 | NUR ---
PATIENT NOT IN DISTRESS, TALKING ON THE PHONE, BREATHING EVEN UNALBORED CALL LIGHT IN REACH.
[2023-10-09] VITALS (11 sets, daily range): BP systolic 170–212; BP diastolic 89–108
--- NOTE | 2023-10-09 | NUR ---
PATIENT RESTING IN BED, NOT IN DISTRESS, NO DISCOMFORTS NOTED AT THIS TIME.
--- NOTE | 2023-10-09 02:00 | NUR ---
PATINET RESTING IN BED, NOT IN DISTRESS, BREATHING EVEN UNLABORED, CALL LIGHT IN REACH.
--- NOTE | 2023-10-09 04:23 | NUR ---
SCOTTIE AWAKEN VOIDED USING URINAL, NOT IN DISTRESS CALL LIGHT IN REACH.
--- NOTE | 2023-10-09 05:52 | NUR ---
PATINETRESTINGINBED, NOT IN DISTRESS, BREATHING EVEN UNLABORED CALL LIGHT IN REACH.
[2023-10-09 06:41] LABS: BASO% 0.6 % (0-3); EOS% 6.5 % (0-8); HEMATOCRIT 34.8 % (39.0-50.0); IMMATURE GRANULOCYTES 0.2 % (0.0-5.0); LYMPH% 36.3 % (15-41); MEAN CELL VOLUME 72.3 fL CALC (80.0-100.0); MEAN CORPUSCULAR HGB 22.9 pG CALC (26.0-32.0); MEAN CORPUSCULAR HGB CONC 31.6 g/dL CAL (32.0-36.0); NEUT# 3.04 thou/uL (1.82-7.42); NEUT% 48.4 % (42-76); RED BLOOD COUNT 4.81 mill/uL (4.70-6.10)
--- NOTE | 2023-10-09 07:00 | NUR ---
RECEIVED REPORT FROM AUDREY VILLALPANDO. PT RESTING IN BED WITH EYES CLOSED. VSS. BP ELEVATED TO 209/111 BUT UNDER PARAMETERS FOR PERMISSIVE HYPERTENSION. ALL SAFETY MEASURES IN PLACE AND FUNCTIONING. NIH 0, PT FUNCTIONING NORMALLY.
[2023-10-09 07:40] LABS: ALBUMIN 3.6 g/dL (3.2-5.0); BILIRUBIN, TOTAL 0.5 mg/dL (0.2-1.3); CREATININE 1.6 mg/dL (0.7-1.3); POTASSIUM 4.2 mmol/l (3.5-5.1); TOTAL PROTEIN 6.5 g/dL (6.3-8.2)
[2023-10-09] MEDS ORDERED: ELIQUIS STARTER5 MG PO (14:38)
--- NOTE | 2023-10-09 15:18 | NUR ---
Discharge instructions given. Patient verbalizes understanding of same. Discharged in stable condition via Wheelchair to Home with family. All belongings sent with pt. PRESCRIPTIONS GIVEN TO PT. EDUCATED ON NEW MEDICATIONS AND PLAN OF CARE GOING FORWARD.
[2023-10-10 21:53] LABS: ANTI-THROMBIN III 81 % normal (80-135)
== END 2023-10-09 15:18 | disposition home or self-care (01) | DRG 65 ==
LOC: ED 16:15 → ED-I 20:00 → ED 20:44 → MS2 20:45 → ICU 10-06 18:27 → MS2 10-06 18:27 → ICU 10-08 04:35
PROVIDERS: Emergency Medicine; Nurse Practitioner Family; Psychiatry & Neurology Neurology; Student in an Organized Health Care Education/Training Program; ADMIT Student in an Organized Health Care Education/Training Program; ATTEND Student in an Organized Health Care Education/Training Program
DX: I63.511 Cerebral infarction due to unspecified occlusion or stenosis of right middle cerebral artery (principal); D68.2 Hereditary deficiency of other clotting factors; G81.94 Hemiplegia, unspecified affecting left nondominant side; I16.1 Hypertensive emergency; R20.0 Anesthesia of skin; R26.0 Ataxic gait; R29.700 NIHSS score 0; R47.81 Slurred speech; R29.810 Facial weakness; R29.704 NIHSS score 4; I10 Essential (primary) hypertension; E11.9 Type 2 diabetes mellitus without complications; M10.9 Gout, unspecified; E66.9 Obesity, unspecified; Z86.73 Personal history of transient ischemic attack (TIA), and cerebral infarction without residual deficits; Z79.82 Long term (current) use of aspirin; Z79.02 Long term (current) use of antithrombotics/antiplatelets; Z79.4 Long term (current) use of insulin
CPT/HCPCS: J3475; Q9967

== ENCOUNTER 2023-10-15 09:33 | Emergency (ER) | payer OTHER ==
[~2023-10-15] VITALS: Ht 167.6 cm; Wt 90.0 kg
[~2023-10-15 09:33] MED LIST changes: +ELIQUIS STARTER5 MG PO
[2023-10-15 09:57] LABS: BASO% 0.6 % (0-3); EOS% 6.6 % (0-8); LYMPH% 29.7 % (15-41); MEAN CELL VOLUME 72.9 fL CALC (80.0-100.0); MEAN CORPUSCULAR HGB 23.1 pG CALC (26.0-32.0); MEAN CORPUSCULAR HGB CONC 31.7 g/dL CAL (32.0-36.0); MONO% 7.2 % (2-13); NEUT# 3.75 thou/uL (1.82-7.42); NEUT% 55.9 % (42-76); RED BLOOD COUNT 5.72 mill/uL (4.70-6.10); RED CELL DISTRI WIDTH 15.4 % (11.5-15.5)
[2023-10-15 10:05] LABS: HEMATOCRIT 41.7 % (39.0-50.0); HEMOGLOBIN 13.2 g/dl (14.0-18.0)
[2023-10-15 10:31] LABS: ALKALINE PHOSPHATASE 95 u/l (38-126); ANION GAP 12 (6-22 (CALC)); BILIRUBIN, TOTAL 0.6 mg/dL (0.2-1.3); BUN 14 mg/dL (9-20); BUN/CREATININE RATIO 8 (12-20 (CALC)); CARBON DIOXIDE 25 mmol/l (22-30); CHLORIDE 108 mmol/l (95-108); CREATININE 1.9 mg/dL (0.7-1.3); GFR FOR AFR.AMER. 46 ML/MIN (>=60 (CALC)); GFR OTHER RACES 38 ML/MIN (>=60 (CALC)); POTASSIUM 4.4 mmol/l (3.5-5.1); SGOT/AST 31 u/l (17-59); SODIUM 140 mmol/l (137-146)
[2023-10-15 10:34] LABS: ALBUMIN 4.6 g/dL (3.2-5.0); TOTAL PROTEIN 8.3 g/dL (6.3-8.2)
[2023-10-15 10:40] VITALS: BP 168/98
== END 2023-10-15 11:09 | disposition left against medical advice (07) | DRG 951 ==
LOC: ED 09:33
PROVIDERS: Family Medicine
DX: Z53.21 Procedure and treatment not carried out due to patient leaving prior to being seen by health care provider (principal)

== ENCOUNTER 2023-10-20 11:21 | Emergency (ER) | payer OTHER ==
[~2023-10-20] VITALS: Ht 167.6 cm; Wt 91.0 kg
[2023-10-20] VITALS (22 sets, daily range): BP systolic 139–208; BP diastolic 74–162
[2023-10-20 12:08] LABS: BASO% 0.7 % (0-3); EOS% 6.8 % (0-8); HEMATOCRIT 39.4 % (39.0-50.0); HEMOGLOBIN 12.3 g/dl (14.0-18.0); LYMPH% 30.1 % (15-41); MEAN CELL VOLUME 73.1 fL CALC (80.0-100.0); MEAN CORPUSCULAR HGB 22.8 pG CALC (26.0-32.0); MEAN CORPUSCULAR HGB CONC 31.2 g/dL CAL (32.0-36.0); MONO% 8.1 % (2-13); NEUT# 3.33 thou/uL (1.82-7.42); NEUT% 54.3 % (42-76); RED BLOOD COUNT 5.39 mill/uL (4.70-6.10); RED CELL DISTRI WIDTH 15.4 % (11.5-15.5)
[2023-10-20 12:28] LABS: ALBUMIN 4.5 g/dL (3.2-5.0); ALKALINE PHOSPHATASE 92 u/l (38-126); ANION GAP 11 (6-22 (CALC)); BILIRUBIN, TOTAL 0.5 mg/dL (0.2-1.3); BUN 18 mg/dL (9-20); BUN/CREATININE RATIO 10 (12-20 (CALC)); CARBON DIOXIDE 25 mmol/l (22-30); CHLORIDE 109 mmol/l (95-108); CREATININE 1.8 mg/dL (0.7-1.3); GFR FOR AFR.AMER. 49 ML/MIN (>=60 (CALC)); GFR OTHER RACES 41 ML/MIN (>=60 (CALC)); POTASSIUM 4.5 mmol/l (3.5-5.1); SGOT/AST 29 u/l (17-59); SODIUM 141 mmol/l (137-146); TOTAL PROTEIN 7.8 g/dL (6.3-8.2)
[2023-10-20 12:29] LABS: ACT PARTIAL THROMBO TIME 28.1 SECONDS (20.0-32.5); INTERNATIONAL NORMALIZED RATIO 1.1 RATIO (0.7-1.3); PROTHROMBIN TIME 10.4 SECONDS (9.0-12.5)
== END 2023-10-20 17:02 | disposition home or self-care (01) | DRG 305 ==
LOC: ED 11:21
PROVIDERS: Emergency Medicine
DX: I16.0 Hypertensive urgency (principal); I10 Essential (primary) hypertension; E11.9 Type 2 diabetes mellitus without complications; Z86.73 Personal history of transient ischemic attack (TIA), and cerebral infarction without residual deficits; Z79.4 Long term (current) use of insulin; Z79.82 Long term (current) use of aspirin; Z79.02 Long term (current) use of antithrombotics/antiplatelets

== ENCOUNTER 2023-10-24 14:16 | Inpatient (IN) | payer OTHER ==
[~2023-10-24] VITALS: Ht 167.6 cm; Wt 90.7 kg
[2023-10-24] VITALS (29 sets, daily range): BP systolic 138–195; BP diastolic 76–106
[2023-10-24 14:36] LABS: BASO% 0.6 % (0-3); EOS% 6.6 % (0-8); HEMOGLOBIN 12.5 g/dl (14.0-18.0); IMMATURE GRANULOCYTES 0.1 % (0.0-5.0); LYMPH% 29.8 % (15-41); MEAN CELL VOLUME 72.2 fL CALC (80.0-100.0); MEAN CORPUSCULAR HGB 22.6 pG CALC (26.0-32.0); MEAN CORPUSCULAR HGB CONC 31.3 g/dL CAL (32.0-36.0); MONO% 7.2 % (2-13); NEUT# 3.87 thou/uL (1.82-7.42); NEUT% 55.7 % (42-76); RED BLOOD COUNT 5.54 mill/uL (4.70-6.10); RED CELL DISTRI WIDTH 15.2 % (11.5-15.5)
[2023-10-24 14:56] LABS: INTERNATIONAL NORMALIZED RATIO 1.1 RATIO (0.7-1.3); PROTHROMBIN TIME 10.5 SECONDS (9.0-12.5)
[2023-10-24 14:58] LABS: ALBUMIN 4.5 g/dL (3.2-5.0); ALKALINE PHOSPHATASE 93 u/l (38-126); ANION GAP 12 (6-22 (CALC)); BILIRUBIN, TOTAL 0.6 mg/dL (0.2-1.3); BUN 18 mg/dL (9-20); BUN/CREATININE RATIO 10 (12-20 (CALC)); CALCULATED LDLCHOLESTEROL 139 mg/dL (62-129 (CALC)); CARBON DIOXIDE 23 mmol/l (22-30); CHLORIDE 109 mmol/l (95-108); CHOLESTEROL HDL RATIO 3.9 (<4.4 (CALC)); CREATININE 1.9 mg/dL (0.7-1.3); GFR FOR AFR.AMER. 46 ML/MIN (>=60 (CALC)); GFR OTHER RACES 38 ML/MIN (>=60 (CALC)); HDL CHOLESTEROL 54 mg/dL (39.0-59.0); POTASSIUM 4.3 mmol/l (3.5-5.1); SGOT/AST 26 u/l (17-59); SODIUM 141 mmol/l (137-146); TOTAL CHOLESTEROL 211 mg/dl (0-199); TOTAL TRIGLYCERIDES 87 mg/dl (0-149); VLDL CHOLESTROL 17 mg/dl (5-56 (CALC))
[2023-10-24 19:39] LABS: URINE BILIRUBIN - DIPSTICK Negative (NEGATIVE); URINE BLOOD DIPSTICK Negative (NEGATIVE); URINE GLUCOSE - DIPSTICK Negative (NEGATIVE); URINE KETONE Negative (NEGATIVE); URINE LEUK ESTERASE Negative (NEGATIVE); URINE NITRITE - DIPSTICK Negative (Negative); URINE PH 5.5 (4.5-8.0); URINE PROTEIN - DIPSTICK >=300 mg/dL (NEG-TRACE); URINE SPECIFIC GRAVITY 1.025
[2023-10-24 19:40] LABS: URINE COLOR Yellow
[2023-10-24 19:48] LABS: URINE MUCUS RARE hpf (NONE-FEW)
[2023-10-25] VITALS (15 sets, daily range): BP systolic 127–166; BP diastolic 75–92
[2023-10-25 05:01] LABS: BASO% 0.9 % (0-3); EOS% 6.5 % (0-8); HEMATOCRIT 37.9 % (39.0-50.0); HEMOGLOBIN 12.1 g/dl (14.0-18.0); LYMPH% 41.9 % (15-41); MEAN CELL VOLUME 71.8 fL CALC (80.0-100.0); MEAN CORPUSCULAR HGB 22.9 pG CALC (26.0-32.0); MEAN CORPUSCULAR HGB CONC 31.9 g/dL CAL (32.0-36.0); MONO% 8.5 % (2-13); NEUT# 2.92 thou/uL (1.82-7.42); NEUT% 42.2 % (42-76); RED BLOOD COUNT 5.28 mill/uL (4.70-6.10); RED CELL DISTRI WIDTH 15.2 % (11.5-15.5)
[2023-10-25 05:24] LABS: ANION GAP 12 (6-22 (CALC)); BUN 18 mg/dL (9-20); BUN/CREATININE RATIO 11 (12-20 (CALC)); CALCULATED LDLCHOLESTEROL 113 mg/dL (62-129 (CALC)); CARBON DIOXIDE 22 mmol/l (22-30); CHLORIDE 111 mmol/l (95-108); CHOLESTEROL HDL RATIO 3.6 (<4.4 (CALC)); CREATININE 1.6 mg/dL (0.7-1.3); GFR FOR AFR.AMER. 56 ML/MIN (>=60 (CALC)); GFR OTHER RACES 47 ML/MIN (>=60 (CALC)); HDL CHOLESTEROL 53 mg/dL (39.0-59.0); POTASSIUM 4.1 mmol/l (3.5-5.1); SODIUM 141 mmol/l (137-146); TOTAL CHOLESTEROL 187 mg/dl (0-199); TOTAL TRIGLYCERIDES 106 mg/dl (0-149); VLDL CHOLESTROL 21 mg/dl (5-56 (CALC))
[2023-10-25 05:30] LABS: C-REACTIVE PROTEIN < 0.5 mg/dL (0-0.9)
== END 2023-10-25 12:45 | disposition left against medical advice (07) | DRG 65 ==
LOC: ED 14:16 → ED-I 15:22 → ED 15:28 → ICU 15:30
PROVIDERS: Family Medicine; ADMIT Student in an Organized Health Care Education/Training Program; ATTEND Student in an Organized Health Care Education/Training Program
DX: I63.81 Other cerebral infarction due to occlusion or stenosis of small artery (principal); D68.51 Activated protein C resistance; G81.94 Hemiplegia, unspecified affecting left nondominant side; I16.1 Hypertensive emergency; N17.9 Acute kidney failure, unspecified; R20.2 Paresthesia of skin; R29.810 Facial weakness; R29.701 NIHSS score 1; I12.9 Hypertensive chronic kidney disease with stage 1 through stage 4 chronic kidney disease, or unspecified chronic kidney disease; E11.22 Type 2 diabetes mellitus with diabetic chronic kidney disease; N18.30 Chronic kidney disease, stage 3 unspecified; K59.00 Constipation, unspecified; E66.9 Obesity, unspecified; Z86.73 Personal history of transient ischemic attack (TIA), and cerebral infarction without residual deficits; Z79.4 Long term (current) use of insulin; Z79.01 Long term (current) use of anticoagulants

== ENCOUNTER 2024-11-14 09:13 | Emergency (ER) | payer MEDICAID ==
[~2024-11-14] VITALS: Ht 170.2 cm; Wt 88.0 kg
[~2024-11-14 09:13] MED LIST changes: +ASPIRIN81 MG PO; +CYCLOBENZAPRINE10 MG PO
[2024-11-14] MEDS ORDERED: cloNIDine HCL 0.1 MG/TAB PO ONE (13:35)
[2024-11-14 13:50] LABS: BASO% 0.4 % (0-3); EOS% 5.8 % (0-8); IMMATURE GRANULOCYTES 0.1 % (0.0-5.0); LYMPH% 21.6 % (15-41); MEAN CELL VOLUME 73.6 fL CALC (80.0-100.0); MEAN CORPUSCULAR HGB 22.7 pG CALC (26.0-32.0); MEAN CORPUSCULAR HGB CONC 30.8 g/dL CAL (32.0-36.0); MONO% 7.6 % (2-13); NEUT# 5.39 thou/uL (1.82-7.42); NEUT% 64.5 % (42-76); RED BLOOD COUNT 6.17 mill/uL (4.70-6.10); RED CELL DISTRI WIDTH 15.7 % (11.5-15.5)
[2024-11-14 13:51] LABS: HEMATOCRIT 45.4 % (39.0-50.0)
[2024-11-14 14:00] VITALS: BP 248/125
[2024-11-14 14:04] LABS: ALBUMIN 4.5 g/dL (3.2-5.0); BILIRUBIN, TOTAL 0.6 mg/dL (0.2-1.3); CREATININE 2.2 mg/dL (0.7-1.3); POTASSIUM 4.4 mmol/l (3.5-5.1)
[2024-11-14 14:08] LABS: TOTAL PROTEIN 8.7 g/dL (6.3-8.2)
[2024-11-14] MEDS ORDERED: predniSONE 20 MG/TAB PO ONE (14:20)
[2024-11-14] MEDS ORDERED: traMADol HCL 50 MG/TAB PO ONE (14:20)
[2024-11-14] MEDS ORDERED: TRAMADOL HYDROC50 M1 PO (14:21)
[2024-11-14] MEDS ORDERED: PREDNISONE20 MG PO (14:21)
[2024-11-14 14:22] VITALS: BP 257/116
[2024-11-14 14:31] VITALS: BP 230/121
[2024-11-14 14:46] VITALS: BP 217/106
[2024-11-14 14:47] VITALS: BP 217/106
== END 2024-11-14 14:51 | disposition home or self-care (01) ==
LOC: ED 09:13
PROVIDERS: Nurse Practitioner Family
DX: M79.674 Pain in right toe(s) (principal); I10 Essential (primary) hypertension; E11.9 Type 2 diabetes mellitus without complications; Z86.73 Personal history of transient ischemic attack (TIA), and cerebral infarction without residual deficits

== ENCOUNTER 2024-11-29 13:59 | Emergency (ER) | payer OTHER ==
[~2024-11-29] VITALS: Ht 170.2 cm; Wt 86.1 kg
[2024-11-29] VITALS (18 sets, daily range): BP systolic 171–205; BP diastolic 97–121
[~2024-11-29 13:59] MED LIST changes: +TRAMADOL HYDROC50 M1 PO
[2024-11-29] MEDS ORDERED: COLCHICINE 0.6 MG/TAB PO ONE ×2 (14:15→15:15)
[2024-11-29] MEDS ORDERED: hydrALAZINE HCL 25 MG/TAB PO ONE (14:30)
[2024-11-29] MEDS ORDERED: NIFEdipine 60 MG TAB PO ONE (14:30)
[2024-11-29] MEDS ORDERED: LABETALOL HCL 100 MG/TAB PO ONE (14:30)
== END 2024-11-29 17:02 | disposition home or self-care (01) ==
LOC: ED 13:59
DX: M10.071 Idiopathic gout, right ankle and foot (principal); I10 Essential (primary) hypertension; E11.9 Type 2 diabetes mellitus without complications; Z86.73 Personal history of transient ischemic attack (TIA), and cerebral infarction without residual deficits; T46.5X6A Underdosing of other antihypertensive drugs, initial encounter; Z91.128 Patient's intentional underdosing of medication regimen for other reason

== ENCOUNTER 2024-11-30 10:29 | Observation (INO) | payer OTHER ==
[~2024-11-30] VITALS: Ht 170.2 cm; Wt 88.5 kg
[2024-11-30] VITALS (52 sets, daily range): BP systolic 99–217; BP diastolic 40–150
--- NOTE | 2024-11-30 10:52 | NUR ---
PATIENT IN CT, DR. BRAUN IN TO SEE PATIENT AT THIS TIME.
--- NOTE | 2024-11-30 10:52 | NUR ---
VERO TERRELL COMPLETED.
[2024-11-30 11:10] LABS: BASO% 0.5 % (0-3); EOS% 4.1 % (0-8); HEMATOCRIT 44.5 % (39.0-50.0); HEMOGLOBIN 13.9 g/dl (14.0-18.0); IMMATURE GRANULOCYTES 0.4 % (0.0-5.0); LYMPH% 20.9 % (15-41); MEAN CELL VOLUME 73.3 fL CALC (80.0-100.0); MEAN CORPUSCULAR HGB 22.9 pG CALC (26.0-32.0); MEAN CORPUSCULAR HGB CONC 31.2 g/dL CAL (32.0-36.0); MONO% 6.1 % (2-13); NEUT# 5.34 thou/uL (1.82-7.42); RED BLOOD COUNT 6.07 mill/uL (4.70-6.10); RED CELL DISTRI WIDTH 15.3 % (11.5-15.5)
--- NOTE | 2024-11-30 11:10 | NUR ---
PER DR. BRAUN CANCEL CTA DUE TO PATIENT STROKE HX; AND HE HAS CREAT OF 2.2.
[2024-11-30 11:18] LABS: ALBUMIN 4.3 g/dL (3.2-5.0); ALKALINE PHOSPHATASE 110 u/l (38-126); ANION GAP 13 (6-22 (CALC)); BILIRUBIN, TOTAL 0.5 mg/dL (0.2-1.3); BUN 18 mg/dL (9-20); BUN/CREATININE RATIO 9 (12-20 (CALC)); CALCULATED LDLCHOLESTEROL 177 mg/dL (62-129 (CALC)); CARBON DIOXIDE 24 mmol/l (22-30); CHLORIDE 108 mmol/l (95-108); CHOLESTEROL HDL RATIO 3.9 (<4.4 (CALC)); ESTIMATED GFR 40 ML/MIN (>=90 (CALC)); HDL CHOLESTEROL 69 mg/dL (39.0-59.0); POTASSIUM 4.7 mmol/l (3.5-5.1); SGOT/AST 25 u/l (17-59); SODIUM 140 mmol/l (137-146); TOTAL CHOLESTEROL 269 mg/dl (0-199); TOTAL PROTEIN 8.1 g/dL (6.3-8.2); TOTAL TRIGLYCERIDES 119 mg/dl (0-149); VLDL CHOLESTROL 24 mg/dl (5-56 (CALC))
[2024-11-30 11:26] LABS: INTERNATIONAL NORMALIZED RATIO 0.9 RATIO (0.7-1.3)
[2024-11-30 11:28] LABS: PROTHROMBIN TIME 9.7 SECONDS (9.0-12.5)
--- NOTE | 2024-11-30 11:46 | NUR ---
PER DR. GARDINER, THE NEUROLOGIST NOW WANTS CT SCAN COMPLETED.
[2024-11-30] MEDS ORDERED: niCARdipine HCL 25 MG/10 ML SDV IV ONE (12:24)
[2024-11-30 13:37] LABS: URINE BILIRUBIN - DIPSTICK Negative (NEGATIVE); URINE BLOOD DIPSTICK Trace-intact (NEGATIVE); URINE GLUCOSE - DIPSTICK Negative (NEGATIVE); URINE KETONE Negative (NEGATIVE); URINE LEUK ESTERASE Negative (NEGATIVE); URINE NITRITE - DIPSTICK Negative (Negative); URINE PROTEIN - DIPSTICK >=300 mg/dL (NEG-TRACE); URINE UROBILINOGEN - DIPSTICK 0.2 E.U./dL (0.2)
[2024-11-30 13:44] LABS: URINE COLOR Yellow
[2024-11-30 13:46] LABS: URINE RBC 0-2 RBC/hpf (0-5)
--- NOTE | 2024-11-30 15:40 | NUR ---
PT REPORT RECEIVED BY JUSTIN. PT MOVED TO ROOM 15.
--- NOTE | 2024-11-30 16:12 | NUR ---
REPORT GIVEN TO ZOHREH ICU NURSE AND PATIENT MOVED TO ER ROOM 15.
--- NOTE | 2024-11-30 18:09 | NUR ---
PT IS LAYING IN BED ON THE PHONE. HOB ELEVATED TO 30 DEGREES. CALL LIGHT IN REACH.
[2024-11-30] MEDS ORDERED: ACETAMINOPHEN 325 MG/TAB PO PRN (19:50)
[2024-11-30] MEDS ORDERED: DEXTROSE 250 ML IV PRN (19:50)
[2024-11-30] MEDS ORDERED: Zaleplon 5 MG/CAP PO PRN (19:50)
[2024-11-30] MEDS ORDERED: MAGNESIUM HYDROXIDE 30 ML UDC PO PRN (19:50)
--- NOTE | 2024-11-30 20:00 | NUR ---
PT DENIES PAIN/SOB AT THIS TIME. EDUCATED ON FALL PRECAUTIIONS, DEMONSTRATED UNDERSTANDING. REMAINS ON CARDENE GTT AT 7.5,PO MEDS ORDERED AND STARTED PER MD ORDERS. NIHSS REMAINS NONSCORING AT ZERO WITH NO NEUROLOGICAL CHANGES. RESTING WELL WITH CALL LIGHT WITHIN REACH
[2024-11-30] MEDS ORDERED: hydrALAZINE HCL 25 MG/TAB PO SCH (21:00)
[2024-11-30] MEDS ORDERED: APIXABAN BASE 5 MG TAB PO SCH (21:00)
[2024-11-30] MEDS ORDERED: INSULIN LISPRO 100 UNITS/ML ML SC SCH (21:00)
[2024-11-30] MEDS ORDERED: LABETALOL HCL 100 MG/TAB PO SCH (21:00)
[2024-11-30] MEDS ORDERED: NIFEdipine 60 MG TAB PO SCH (21:00)
[2024-11-30] MEDS ORDERED: ATORVASTATIN CALCIUM 40 MG/TAB PO SCH (21:00)
[2024-12-01] VITALS (69 sets, daily range): BP systolic 124–183; BP diastolic 68–118
--- NOTE | 2024-12-01 01:00 | NUR ---
PT REMAINS STABLE WITH NO CHANGES AT THIS TIME, NIHSS NONSCORING AT ZERO, NO CHANGES. GTT REMAINS THE SAME; RESTING WELL WITH CALL LIGHT IN REACH
--- NOTE | 2024-12-01 06:00 | NUR ---
PT REMAINS STABLE WITH NO CHANGES, NO CHANGES TO NIHSS, NONSCORING AT ZERO, REMAINS ON CARDENE GTT AT 7.5 WITH STABILIZING BPS 150 SBP/90DBP. DENIES PAIN/SOB. NO SIGNS OF DISTRESS NOTED AT THIS TIME. RESTING WELL WITH CALL LIGHT IN REACH
--- NOTE | 2024-12-01 07:22 | NUR ---
PT REPORT RECEIVED FROM SHIFTMAN, PT ALERT/ORIENTED X3, DENIES ANY CHEST PAIN, NIHS A 0, MAEW, STATES HAS BEEN WITHOUT HIS BLOOD PRESSURE MEDS FOR SEVERAL DAYS. PT SITTING UP EATING AT THIS TIME. PO MEDS WILL BE GIVEN FOR BLOOD PRESSURE AND ADVISED THAT WE WILL BE TRYING TO WEAN HIM OFF THE CARDENE
[2024-12-01 07:29] LABS: MAGNESIUM 1.9 mg/dL (1.6-2.3)
--- NOTE | 2024-12-01 08:51 | NUR ---
ST EVAL ORDER NOT RECIEVED, HOWEVER PT WAS STROKE ALERT. CARDIOVASCULAR OPERATING ROOM NURSE CALLED RN TO CONFIRM. RN STATES NO SPEECH THERAPY NEEDED AT THIS TIME. PT IS AT BASELINE AND PASSED BSE. PLEASE CONSULT NEEDED.
--- NOTE | 2024-12-01 09:13 | NUR ---
AT THIS TIME CARDENE DRIP HAS BEEN DISCONTINUED, WILL CONTINUE TO MONITER
--- NOTE | 2024-12-01 14:08 | NUR ---
pt sitting up in chair, waiting for mri, teleneurologist ordered mri this am after rounding. vital signs remain stable. pt denies any complaints.
--- NOTE | 2024-12-01 14:58 | NUR ---
pt down to mri per w/c, pt has been downgraded to med surg with tele, will take pt to med surg from mri
[2024-12-01] MEDS ORDERED: LABETALOL HYDR200 MG PO (15:44)
[2024-12-01] MEDS ORDERED: ATORVASTATIN CA40 MG PO (15:44)
[2024-12-01] MEDS ORDERED: ELIQUIS5 MG PO (15:44)
[2024-12-01] MEDS ORDERED: HYDRALAZINE HYD25 MG PO (15:44)
[2024-12-01] MEDS ORDERED: NIFEDIPINE60 MG PO (15:44)
--- NOTE | 2024-12-01 16:00 | NUR ---
Moved patient to med surg room 275 in wheelchair without issue. Placed on tele box #[id number]. Patient is A&Ox4, on room air, VS WNL, NSR on tele monitor. All needs addressed, call light within reach.
--- NOTE | 2024-12-01 20:00 | NUR ---
PT A&OX4 ABLE TO MAKE NEEDS KNOWN. PT AMBULATES WITH SLOW STEADY GAIT. DENIES CP, SOB OR DISTRESS AT THIS TIME. PT REPORTS INTERMITTANT DIZZINESS, NOT AT THIS TIME. PT ALSO REPORT THAT HIS CHRONIC GOUT IN RETURNING, WILL NOTIFY . LS CLEAR THROUGHOUT, BSX4 ACTIVE. BS 168, 1 UNIT GIVEN ORDERED. CALL LIGHT IN REACH. WILL MONITOR.
--- NOTE | 2024-12-02 | NUR ---
PT RESTING IN BED, RESP. EVEN/UNLABORED. CALL LIGHT IN REACH. WILL MONITOR
--- NOTE | 2024-12-02 04:00 | NUR ---
PT RESTING IN BED WITH EYES CLOSED, RESP. EVEN/UNLABORED. NO DISTRESS NOTED AT THIS TIME.CALL LIGHT IN REACH. WILL MONITOR.
[2024-12-02 04:08] VITALS: BP 138/78
[2024-12-02 05:19] LABS: HEMATOCRIT 42.9 % (39.0-50.0); HEMOGLOBIN 13.5 g/dl (14.0-18.0); MEAN CELL VOLUME 73.2 fL CALC (80.0-100.0); MEAN CORPUSCULAR HGB CONC 31.5 g/dL CAL (32.0-36.0); RED BLOOD COUNT 5.86 mill/uL (4.70-6.10); RED CELL DISTRI WIDTH 15.6 % (11.5-15.5)
[2024-12-02 05:37] LABS: BILIRUBIN, TOTAL 0.6 mg/dL (0.2-1.3); CREATININE 2.6 mg/dL (0.7-1.3); MAGNESIUM 1.9 mg/dL (1.6-2.3); POTASSIUM 4.4 mmol/l (3.5-5.1); TOTAL PROTEIN 7.3 g/dL (6.3-8.2)
--- NOTE | 2024-12-02 07:30 | NUR ---
Report received from overnight caregiver nurse. Patient is resting in bed, denies any pain. A&Ox4, on room air, NSR on tele monitor, VS WNL. Plan for patient to have echo and carotid doppler. All needs addressed, call light within reach.
[2024-12-02 08:10] VITALS: BP 160/93
[2024-12-02 11:25] VITALS: BP 135/80
--- NOTE | 2024-12-02 12:00 | NUR ---
Patient is resting in bed, denies any pain. A&Ox4, on room air, NSR on tele monitor. All needs addressed, call light within reach.
--- NOTE | 2024-12-02 13:00 | NUR ---
Patient went down to ultrasound with volunteer via wheelchair.
[2024-12-02] MEDS ORDERED: LOSARTAN Potassium 50 MG/TAB PO SCH (13:30)
[2024-12-02 15:48] VITALS: BP 155/84
--- NOTE | 2024-12-02 15:50 | NUR ---
patient voided x3 of urine.
--- NOTE | 2024-12-02 16:10 | NUR ---
Telehealth visit with neurologist done. Neurologist wants patient to have physical therapy consult.
[2024-12-02 19:10] VITALS: BP 169/91
--- NOTE | 2024-12-02 19:15 | NUR ---
PATIENT OBSERVED RESTING IN BED. ALERT AND ABLE TO MAKE NEEDS KNOWN. ASSESSMENT COMPLETE. NO COMPLAINTS OF PAIN. NO DISTRESS NOTED. AMBULATES WITHOUT DIFFICULTY. DENIES NEEDING ANYTHING AT THIS TIME. CALL WHITE AND BELONGINGS IN REACH.
--- NOTE | 2024-12-03 00:25 | NUR ---
PATIENT REMAINS RESTING IN BED. AMBULATES WITH STEADY GAIT. NO COMPLAINTS OF DIZZINESS. DENIES NEEDING ANYTHING AT THIS TIME. CALL WHITE IN REACH.
[2024-12-03 00:28] VITALS: BP 150/84
--- NOTE | 2024-12-03 03:40 | NUR ---
PATIENT REMAINS RESTING. DENIES NEEDING ANYTHING AT THIS TIME. BED REMAINS IN LOW POSITION. CALL WHITE IN REACH.
[2024-12-03 04:00] VITALS: BP 151/88
[2024-12-03 04:18] VITALS: BP 151/88
[2024-12-03 05:37] LABS: BASO% 0.5 % (0-3); EOS% 3.7 % (0-8); HEMATOCRIT 40.7 % (39.0-50.0); HEMOGLOBIN 12.8 g/dl (14.0-18.0); IMMATURE GRANULOCYTES 0.1 % (0.0-5.0); LYMPH% 30.6 % (15-41); MEAN CELL VOLUME 73.1 fL CALC (80.0-100.0); MEAN CORPUSCULAR HGB CONC 31.4 g/dL CAL (32.0-36.0); MONO% 7.1 % (2-13); NEUT# 4.82 thou/uL (1.82-7.42); RED BLOOD COUNT 5.57 mill/uL (4.70-6.10); RED CELL DISTRI WIDTH 15.8 % (11.5-15.5)
[2024-12-03 05:48] LABS: ALBUMIN 3.6 g/dL (3.2-5.0); BILIRUBIN, TOTAL 0.5 mg/dL (0.2-1.3); CREATININE 2.5 mg/dL (0.7-1.3); MAGNESIUM 1.9 mg/dL (1.6-2.3); POTASSIUM 4.3 mmol/l (3.5-5.1); TOTAL PROTEIN 6.5 g/dL (6.3-8.2)
[2024-12-03 07:11] VITALS: BP 152/91
--- NOTE | 2024-12-03 07:21 | NUR ---
PATIENT LYING SUPINE IN BED WITH EYES CLOSED RESTING. BREATHING UNLABORED ON ROOM AIR. IV IN LAC SL;SITE CLEAN AND INTACT. TELE INTACT. NO SIGNS OF DISTRESS OR PAIN NOTED. PERSONAL ITEMS WELL CALL LIGHT WITHIN REACH. BED IN LOWEST POSITION. POC ONGOING. NO NEEDS AT THIS TIME.
[2024-12-03] MEDS ORDERED: LOSARTAN POTASS50 MG PO (10:11)
[2024-12-03 10:50] VITALS: BP 141/87
--- NOTE | 2024-12-03 11:14 | NUR ---
Discharge instructions given. Patient verbalizes understanding of same. Discharged in stable condition via Wheelchair to Home with volunteer. All belongings sent with pt. Tele #[id number] removed and placed bin at nursing station.
--- NOTE | 2024-12-06 09:58 | NUR ---
dISCHARGE FOLLOW UP CALL COMPLETED 12/06/24. pATIENT STATES HE IS DOING WELL SINCE DISCHARGE. pATIENT IS TAKING PRESCRIBED MEDICATION DIRECTED. hE HAS A FOLLOW UP APPOINTMENT WITH HIS pcp TODAY. nO NEEDS OR CONCERNS VERBALIZED AT THIS TIME
== END 2024-12-03 11:14 | disposition home or self-care (01) ==
LOC: ED 10:29 → ED-I 13:37 → ED 13:55 → ED-I 13:56 → ICU 23:30 → MS2 12-01 15:15
PROVIDERS: Family Medicine; Nurse Practitioner Family; ADMIT Internal Medicine; ATTEND Internal Medicine
DX: I63.543 Cerebral infarction due to unspecified occlusion or stenosis of bilateral cerebellar arteries (principal); I63.81 Other cerebral infarction due to occlusion or stenosis of small artery; R42 Dizziness and giddiness; R26.89 Other abnormalities of gait and mobility; R29.700 NIHSS score 0; I16.1 Hypertensive emergency; I12.9 Hypertensive chronic kidney disease with stage 1 through stage 4 chronic kidney disease, or unspecified chronic kidney disease; E11.22 Type 2 diabetes mellitus with diabetic chronic kidney disease; N18.9 Chronic kidney disease, unspecified; D68.59 Other primary thrombophilia; I48.91 Unspecified atrial fibrillation; E78.5 Hyperlipidemia, unspecified; D68.51 Activated protein C resistance; T46.1X6A Underdosing of calcium-channel blockers, initial encounter; T46.5X6A Underdosing of other antihypertensive drugs, initial encounter; Z91.128 Patient's intentional underdosing of medication regimen for other reason; Z91.199 Patient's noncompliance with other medical treatment and regimen due to unspecified reason; Z86.73 Personal history of transient ischemic attack (TIA), and cerebral infarction without residual deficits; Z79.01 Long term (current) use of anticoagulants
CPT/HCPCS: G0378; J1815; Q9967

== ENCOUNTER 2024-12-12 19:56 | Emergency (ER) | payer SELFPAY ==
[~2024-12-12] VITALS: Ht 170.2 cm; Wt 88.0 kg
[~2024-12-12 19:56] MED LIST changes: +LOSARTAN POTASS50 MG PO
[2024-12-12] MEDS ORDERED: MECLIZINE HCL 25 MG/TAB PO ONE (20:40)
[2024-12-12] MEDS ORDERED: MECLIZINE25 M1 PO (21:19)
[2024-12-12 21:30] VITALS: BP 148/78
== END 2024-12-12 21:30 | disposition home or self-care (01) | DRG 149 ==
LOC: ED 19:56
DX: R42 Dizziness and giddiness (principal)